=== PATIENT | male | born 1945 | race Caucasian/White ===

== ENCOUNTER 2021-08-11 14:39 | Emergency (ER) | payer MEDICARE ==
[2021-08-11 14:47] VITALS: BP 178/85; PULSE 70; RESP 18; TEMP 97.6
--- NOTE | 2021-08-11 15:38 | ED ---
General Adult HPI - General Chief complaint: ENT Stated complaint: sore throat Time Seen by Provider: 08/11/21 14:45 Source: patient, RN notes reviewed, old records reviewed Mode of arrival: ambulatory Limitations: no limitations - History of Present Illness Initial comments: This is a 76-year-old male presents emergency Department with anxiety and depr ession. Patient states that his sore throat for 3 weeks he was on penicillin it hasn't gotten any better. Patient just wants another rapid strep test and a COBRA test. Patient states he doesn't want no wait for the results because he is too anxious pain in the emergency department. Patient denies any shortness of breath or difficulty breathing or chest pain. Patient denies any recent fever chills. Patient states he has a lot of postnasal drip at night and his sore throat is much worse in the morning and when he starts drinking in the daytime he feels much better. Patient has asked to go home and asked us to call him with results. - Related Data Allergies Allergy/AdvReac Type Severity Reaction Status Date / Time No Known Allergies Allergy Verified 08/11/21 14:47 Review of Systems ROS Statement: Those systems with pertinent positive or pertinent negative responses have been documented in the HPI. ROS Other: All systems not noted in ROS Statement are negative. Past Medical History History of Any Multi-Drug Resistant Organisms: None Reported Past Surgical History: Appendectomy, Cholecystectomy, Orthopedic Surgery, Tonsillectomy Past Psychological History: Anxiety, Depression Smoking Status: Never smoker Past Alcohol Use History: Occasional Past Drug Use History: None Reported General Exam - General Exam Comments Initial Comments: GENERAL: Patient is well-developed and well-nourished. Patient is nontoxic and well- hydrated and is in no acute distress. ENT: Neck is soft and supple. No significant lymphadenopathy is noted. Oropharynx is clear. Moist mucous membranes. Neck has full range of motion without eliciting any pain. EYES: The sclera were anicteric and conjunctiva were pink and moist. Extraocular movements were intact and pupils were equal round and reactive to light. Eyelids were unremarkable. PULMONARY: Unlabored respirations. Good breath sounds bilaterally. No audible rales rhonchi or wheezing was noted. CARDIOVASCULAR: There is a regular rate and rhythm without any murmurs gallops or rubs. ABDOMEN: Soft and nontender with normal bowel sounds. SKIN: Skin is clear with no lesions or rashes and otherwise unremarkable. NEUROLOGIC: Patient is alert and oriented x3. Cranial nerves II through XII are grossly intact. Motor and sensory are also intact. Normal speech, volume and content. Symmetrical smile. MUSCULOSKELETAL: Normal extremities with adequate strength and full range of motion. No lower extremity swelling or edema. No calf tenderness. LYMPHATICS: No significant lymphadenopathy is noted PSYCHIATRIC: Normal psychiatric evaluation. Limitations: no limitations Course Vital Signs 08/11/21 14:41 Temperature 97.6 F Pulse Rate 70 Respiratory 18 Rate Blood Pressure 178/85 O2 Sat by Pulse 99 Oximetry Disposition Clinical Impression: Pharyngitis Disposition: HOME SELF-CARE Instructions (If sedation given, give patient instructions): Pharyngitis (ED) Is patient prescribed a controlled substance at d/c from ED?: No Referrals: Angel Mcadams MD [Primary Care Provider] - 1-2 days Time of Disposition: 15:37
== END 2021-08-11 15:47 | disposition home or self-care (01) ==
LOC: EC 14:39
DX: J02.9 Acute pharyngitis, unspecified (principal)
CPT/HCPCS: 87081; 87430; 87635; 99283

== ENCOUNTER 2022-06-23 10:30 | Inpatient (IN) | payer MEDICARE ==
[2022-06-23] MEDS ORDERED: SODIUM CHLORIDE 0.9% 500 ML 500 ML IV STA (10:52)
[2022-06-23 10:59] LABS: Basophils % (A) 1 %; Eosinophils # (A) 0.2 k/uL (0-0.7); Eosinophils % (A) 2 %; HGB 14.5 gm/dL (13.0-17.5); Lymphocytes % (A) 13 %; MCH 33.1 pg (25.0-35.0); MCHC 35.4 g/dL (31.0-37.0); MCV 93.6 fL (80.0-100.0); Mean Platelet Volume 7.6; Monocytes # (A) 0.6 k/uL (0-1.0); Monocytes % (A) 8 %; Neutrophils # (A) 5.8 k/uL (1.3-7.7); Neutrophils % (A) 74 %; Platelet Count 227 k/uL (150-450); RBC 4.39 m/uL (4.30-5.90); RDW 12.3 % (11.5-15.5); WBC 7.9 k/uL (3.8-10.6)
[2022-06-23 11:12] LABS: Partial Thromboplastin Time 23.4 sec (22.0-30.0); Prothrombin Time 10.4 sec (9.0-12.0)
[2022-06-23 11:19] LABS: ALT 26 U/L (4-49); AST 30 U/L (17-59); African American GFR (CKD) >90 (>60 ml/min/1.73 sqM); Albumin 4.2 g/dL (3.5-5.0); Alkaline Phosphatase 62 U/L (38-126); Anion Gap 7 mmol/L; Blood Urea Nitrogen 20 mg/dL (9-20); Carbon Dioxide 27 mmol/L (22-30); Chloride 105 mmol/L (98-107); Glucose 154 mg/dL (74-99); Non-African American GFR(CKD) 82 (>60 ml/min/1.73 sqM); Sodium 139 mmol/L (137-145); Total Bilirubin 0.6 mg/dL (0.2-1.3); Total Protein 7.1 g/dL (6.3-8.2)
--- NOTE | 2022-06-23 11:27 | XR ---
EXAMINATION TYPE: XR chest 2V DATE OF EXAM: 06/23/2022 COMPARISON: NONE TECHNIQUE: PA and lateral views submitted. HISTORY: Altered mental status FINDINGS: The lungs are clear and there is no pneumothorax, pleural effusion, or focal pneumonia. Overlying a rtifact noted. Heart size grossly normal. No overt failure. Correlate for underlying COPD. Hypertroph ic changes of the spine. Atherosclerotic change aorta. IMPRESSION: 1. No acute process. Correlate for COPD.
--- NOTE | 2022-06-23 11:35 | CT ---
EXAMINATION TYPE: CT brain wo con DATE OF EXAM: 06/23/2022 HISTORY: leaning to the Rt, dizziness. Acute onset neuro deficit. CT DLP: 1147.6 mGycm. Automated Exposure Control for Dose Reduction was Utilized. TECHNIQUE: CT scan of the head is performed without contrast. COMPARISON: None. FINDINGS: There is no acute intracranial hemorrhage or midline shift identified. There is mild to m oderate diffuse ventricular and sulcal prominence consistent with diffuse cerebral atrophy with degre e of sulcal effacement greatest over the superior bilateral frontal and parietal lobes. There is mil d to moderate low-attenuation in the deep and periventricular white matter consistent with chronic sm all vessel ischemic change inpatient of this age. Scleral calcification lateral left globe. Paranas al sinuses are grossly clear. Nasal septum slightly deviated to right of midline. There is 1.8 cm muc ous retention cyst or polyp in the anterior inferior right maxillary sinus. IMPRESSION: No acute intracranial hemorrhage or midline shift. There is mild to moderate diffuse ce rebral atrophy greatest over the superior bilateral frontal and parietal lobes and mild to moderate c hronic small vessel ischemic change noted.
--- NOTE | 2022-06-23 11:40 | CT ---
EXAMINATION TYPE: CT angio head neck DATE OF EXAM: 06/23/2022 HISTORY: leaning to the Rt, dizziness COMPARISON: CT DLP: 589.3 mGycm. Automated Exposure Control for Dose Reduction was Utilized. TECHNIQUE: CTA scan of the neck is performed with IV Contrast, patient injected with 65 mL of Isovue 370, axial images are obtained, coronal and sagittal reformatted images are reviewed. Three-D recons tructed images are created on an independent workstation and reviewed. Source images are reviewed. FINDINGS: Carotid/Vascular Structures: There is a 3 vessel arch. Common carotid arteries appear unremarkable. T he vertebral arteries are codominant. Mild vascular calcification without stenosis is present at the carotid bifurcations. Internal carotid arteries and vertebral arteries are patent to the skull base. Cervical of [place]: Vertebral basilar system appears normal. Posterior cerebral vasculature is unrema rkable. Internal carotid arteries bifurcate normally into A1 and M1 segments. A2 segments are normal. The anterior communicating artery is patent. Posterior communicating arteries are not identified. Other: Degenerative disc changes present C3-4 and C4-5. Some mild posterior endplate spurring at C3 m ay be present. IMPRESSION: 1. No flow-limiting stenosis bilateral carotid bifurcations. 2. Normal [place] of [place] NASCET criteria was used in interpretation of this exam?
[2022-06-23] MEDS ORDERED: LORazepam 2 MG/ML INJ IV STA (12:00)
--- NOTE | 2022-06-23 12:36 | ED ---
General Adult HPI - General Chief complaint: Weakness Stated complaint: weakness Time Seen by Provider: 06/23/22 10:30 Source: patient, family, EMS, RN notes reviewed, old records reviewed Mode of arrival: EMS Limitations: no limitations - History of Present Illness Initial comments: This is a 77-year-old male who presents emergency Department complaining that for 3 days he's been dragging his right foot and when he gets up is leaning to the right base states this morning it was considerably worse and he actually fell over but he did not hurt himself. Patient denies any headache patient denies any numbness. Patient denies any slurred speech. Patient states stable to move all extremities but he seems not to have his coordination he is dragging his foot even though he seems to be able to lift his foot move his foot without problem. Patient denies any chest pain or palpitations. Patient has difficulty breathing first breath per patient denies abdominal pain patient denies nausea vomiting diarrhea. - Related Data Home Medications Medication Instructions Recorded Confirmed ALPRAZolam [Xanax] 1 mg PO DAILY PRN 06/23/22 06/23/22 Propranolol [Inderal] 20 mg PO DAILY 06/23/22 06/23/22 Rosuvastatin [Crestor] 20 mg PO Q2D@2100 06/23/22 06/23/22 busPIRone HCl [Buspar] 10 mg PO BID 06/23/22 06/23/22 lisinopriL [Prinivil] 20 mg PO BID 06/23/22 06/23/22 traZODone HCL 150 mg PO HS 06/23/22 06/23/22 Allergies Allergy/AdvReac Type Severity Reaction Status Date / Time No Known Allergies Allergy Verified 06/23/22 12:02 Review of Systems ROS Statement: Those systems with pertinent positive or pertinent negative responses have been documented in the HPI. ROS Other: All systems not noted in ROS Statement are negative. Past Medical History Past Medical History: Hypertension History of Any Multi-Drug Resistant Organisms: None Reported Past Surgical History: Appendectomy, Cholecystectomy, Orthopedic Surgery, Tonsillectomy Past Psychological History: Anxiety, Depression Smoking Status: Never smoker Past Alcohol Use History: Occasional Past Drug Use History: None Reported General Exam - General Exam Comments Initial Comments: GENERAL: Patient is well-developed and well-nourished. Patient is nontoxic and well- hydrated and is in no acute distress. ENT: Neck is soft and supple. No significant lymphadenopathy is noted. Oropharynx is clear. Moist mucous membranes. Neck has full range of motion without eliciting any pain. EYES: The sclera were anicteric and conjunctiva were pink and moist. Extraocular movements were intact and pupils were equal round and reactive to light. Eyelids were unremarkable. PULMONARY: Unlabored respirations. Good breath sounds bilaterally. No audible rales rhonchi or wheezing was noted. CARDIOVASCULAR: There is a regular rate and rhythm without any murmurs gallops or rubs. ABDOMEN: Soft and nontender with normal bowel sounds. SKIN: Skin is clear with no lesions or rashes and otherwise unremarkable. NEUROLOGIC: Patient is alert and oriented x3. Cranial nerves II through XII are grossly intact. Motor and sensory are also intact. Normal speech, volume and content. Symmetrical smile. Cerebellar exam grossly intact. Patient is able to do heel to muñoz without problem bilaterally patient's finger-nose bilaterally is normal. MUSCULOSKELETAL: Normal extremities with adequate strength and full range of motion. LYMPHATICS: No significant lymphadenopathy is noted PSYCHIATRIC: Patient is extremely anxious Limitations: no limitations Course Vital Signs 06/23/22 06/23/22 10:31 11:45 Temperature 98.1 F Pulse Rate 60 62 Respiratory 18 18 Rate Blood Pressure 176/103 156/107 O2 Sat by Pulse 97 96 Oximetry Medical Decision Making - Medical Decision Making EKG shows sinus bradycardia with 59 bpm TX interval is 250 QRS is 124 QT interval is 4:15 QTC is 414. Patient's EKG shows no ST segment elevation or depression. CT of the brain was interpreted by me shows no acute normalities. CT angiogram of head and neck showed no acute normal Chest x-ray was interpreted by me. X-ray of the chest showed no acute abnormality. I spoke with Dr. Starr he agreed to admit the patient admitted the patient I consult the neurology. I could not appreciate any deficit in my exam is an age was 0. family did state that the patient was off balance and fell this morning - Lab Data Result diagrams: 06/23/22 10:54 06/23/22 10:54 Lab Results 06/23/22 06/23/22 06/23/22 Range/Units 10:54 10:54 10:54 WBC 7.9 (3.8-10.6) k/uL RBC 4.39 (4.30-5.90) m/uL Hgb 14.5 (13.0-17.5) gm/dL Hct 41.0 (39.0-53.0) % MCV 93.6 (80.0-100.0) fL MCH 33.1 (25.0-35.0) pg MCHC 35.4 (31.0-37.0) g/dL RDW 12.3 (11.5-15.5) % Plt Count 227 (150-450) k/uL MPV 7.6 Neutrophils % 74 % Lymphocytes % 13 % Monocytes % 8 % Eosinophils % 2 % Basophils % 1 % Neutrophils # 5.8 (1.3-7.7) k/uL Lymphocytes # 1.0 (1.0-4.8) k/uL Monocytes # 0.6 (0-1.0) k/uL Eosinophils # 0.2 (0-0.7) k/uL Basophils # 0.0 (0-0.2) k/uL PT 10.4 (9.0-12.0) sec INR 1.0 (<1.2) APTT 23.4 (22.0-30.0) sec Sodium 139 (137-145) mmol/L Potassium 4.0 (3.5-5.1) mmol/L Chloride 105 (98-107) mmol/L Carbon Dioxide 27 (22-30) mmol/L Anion Gap 7 mmol/L BUN 20 (9-20) mg/dL Creatinine 0.89 (0.66-1.25) mg/dL Est GFR (CKD-EPI)AfAm >90 (>60 ml/min/1.73 sqM) Est GFR (CKD-EPI)NonAf 82 (>60 ml/min/1.73 sqM) Glucose 154 H (74-99) mg/dL Calcium 9.0 (8.4-10.2) mg/dL Total Bilirubin 0.6 (0.2-1.3) mg/dL AST 30 (17-59) U/L ALT 26 (4-49) U/L Alkaline Phosphatase 62 (38-126) U/L Troponin I (0.000-0.034) ng/mL Total Protein 7.1 (6.3-8.2) g/dL Albumin 4.2 (3.5-5.0) g/dL 06/23/22 Range/Units 10:54 WBC (3.8-10.6) k/uL RBC (4.30-5.90) m/uL Hgb (13.0-17.5) gm/dL Hct (39.0-53.0) % MCV (80.0-100.0) fL MCH (25.0-35.0) pg MCHC (31.0-37.0) g/dL RDW (11.5-15.5) % Plt Count (150-450) k/uL MPV Neutrophils % % Lymphocytes % % Monocytes % % Eosinophils % % Basophils % % Neutrophils # (1.3-7.7) k/uL Lymphocytes # (1.0-4.8) k/uL Monocytes # (0-1.0) k/uL Eosinophils # (0-0.7) k/uL Basophils # (0-0.2) k/uL PT (9.0-12.0) sec INR (<1.2) APTT (22.0-30.0) sec Sodium (137-145) mmol/L Potassium (3.5-5.1) mmol/L Chloride (98-107) mmol/L Carbon Dioxide (22-30) mmol/L Anion Gap mmol/L BUN (9-20) mg/dL Creatinine (0.66-1.25) mg/dL Est GFR (CKD-EPI)AfAm (>60 ml/min/1.73 sqM) Est GFR (CKD-EPI)NonAf (>60 ml/min/1.73 sqM) Glucose (74-99) mg/dL Calcium (8.4-10.2) mg/dL Total Bilirubin (0.2-1.3) mg/dL AST (17-59) U/L ALT (4-49) U/L Alkaline Phosphatase (38-126) U/L Troponin I <0.012 (0.000-0.034) ng/mL Total Protein (6.3-8.2) g/dL Albumin (3.5-5.0) g/dL Disposition Clinical Impression: CVA (cerebral vascular accident) Disposition: ADMITTED IP TO THIS HOSP Referrals: Edwin Orta MD [Primary Care Provider] - 1-2 days Time of Disposition: 12:36
[2022-06-23] MEDS ORDERED: ASPIRIN 325 MG TAB PO STA (12:38)
--- NOTE | 2022-06-23 15:37 | P.CNNES ---
History of Present Illness Consult date: 06/23/22 Requesting physician: Toñito Dominguez Reason for Consult: cva History of Present Illness: This is a 77-year-old gentleman who presents emergency department because of episode of dragging his right foot and leaning on the right side. Some of the history is obtained from the patient's daughter was at bedside. According to the patient has been feeling dizzy and having excessive saliva for some time and this has been going on for years at least 2-3 years that has been progressively getting worse. According to the daughter today he dragged his right foot and was living on the right side but according to the patient was feeling dizzy when getting up. Upon seeing him I noticed that the patient is having right upper extremity resting tremor and upon asking about that he stated that he's been having it for 2-3 years is progressively getting worse and he was [facility] the past and was told that he did not have Parkinson's since he did not have a good amount of resting tremor or excessive Saliva (He thinks he followed-up with Dr. Campos). Patient denies any focal weakness today, any numbness, any visual disturbance. Denies efficacy getting his words out. Denies any headache. Denied any lower back pain that was significant more than normal. He denies any history of stroke or seizures. He has history of depression and anxiety. Patient is not on antiplatelets. Some of the workup during his hospital visit consisted of: CBC with differential and chemistry panel is the only thing that was remarkable is the glucose slightly elevated over 154 otherwise rest is unremarkable. CT of the head is reported as no acute intracranial hemorrhage or midline shift. There is mild to moderate diffuse cerebral atrophy greatest over the superior bilateral frontal and parietal lobes and mid to moderate chronic small vessel ischemic changes noted. I personally reviewed the CT of the head and there is no acute or subacute ischemic stroke there is no intraparenchymal hemorrhage and/or mass effect. CT angiography of the head and neck was reported as no flow limiting bilateral carotid bifurcation. Normal [place] of [place]. Review of Systems Review of system: The 12 point system was reviewed and apparent positive and negative per HPI. Past Medical History Past Medical History: Hypertension History of Any Multi-Drug Resistant Organisms: None Reported Past Surgical History: Appendectomy, Cholecystectomy, Orthopedic Surgery, Tonsillectomy Past Psychological History: Anxiety, Depression Smoking Status: Never smoker Past Alcohol Use History: Occasional Past Drug Use History: None Reported Medications and Allergies Home Medications Medication Instructions Recorded Confirmed Type ALPRAZolam [Xanax] 1 mg PO DAILY PRN 06/23/22 06/23/22 History Propranolol [Inderal] 20 mg PO DAILY 06/23/22 06/23/22 History Rosuvastatin [Crestor] 20 mg PO Q2D@2100 06/23/22 06/23/22 History busPIRone HCl [Buspar] 10 mg PO BID 06/23/22 06/23/22 History lisinopriL [Prinivil] 20 mg PO BID 06/23/22 06/23/22 History traZODone HCL 150 mg PO HS 06/23/22 06/23/22 History Allergies Allergy/AdvReac Type Severity Reaction Status Date / Time No Known Allergies Allergy Verified 06/23/22 12:02 Physical Examination - Vital Signs Vital Signs: Vital Signs Temp Pulse Resp BP Pulse Ox 06/23/22 14:00 54 L 164/84 98 06/23/22 13:09 56 L 18 164/93 98 06/23/22 13:00 54 L 97 06/23/22 12:00 56 L 18 98 06/23/22 11:45 62 18 156/107 96 06/23/22 10:31 98.1 F 60 18 176/103 97 Intake and Output 06/23/22 06/23/22 06/23/22 06:59 14:59 22:59 Other: Weight 79.832 kg GENERAL: The patient is lying in bed and is not in acute distress. CHEST: The heart rate is regular rate rhythm. No murmurs to auscultation. LUNG: Clear to auscultation bilaterally no wheezing noted throughout. Not labored breathing. ABDOMEN/GI: Bowel sounds present in all 4 quadrants. No tenderness to palpation throughout. NEUROLOGICAL: Higher mental function: The patient is awake, alert, oriented to self, place and time. Patient is following commands. No aphasia and no neglect. Cranial nerves: The pupils are round, equal and reactive to light and accommodation. Visual powers are full to confrontation throughout. Extraocular movement is intact no nystagmus is noted. Facial sensation is normal to touch throughout. The facial strength is normal throughout. Has mask-like facial expression. Hearing is normal bilaterally to hand rub. Tongue is midline and moved [id number] without any difficulty. No dysarthria is noted. Shoulder shrug is normal bilaterally. Motor: The strength is 5 over 5 throughout. Normal tone and bulk. Cerebellum: Normal finger to nose bilaterally. Sensation: Sensation is normal to touch throughout. Reflexes (right/left): 2+ throughout. Plantars are downgoing bilaterally. Results - Laboratory Findings CBC and BMP: 06/23/22 10:54 06/23/22 10:54 Abnormal Lab Findings: Abnormal Labs 06/23/22 10:54 Glucose 154 H Assessment and Plan Assessment: Episode of leaning on the right side and Possible dragging the right foot but he stated he was dizzy with this episode. Rule out stroke (I feel less likely) and I feel more his symptoms due to Parkinon's disease. New onset Parkinson's (has resting tremor of the right upper extremity, dizzy and excessive saliva) for past 2-3 years and progressively worsening Hypertension Depression Anxiety Plan: I ordered MRI of the brain, 2-D echo. In the ED the patient was given aspirin 325 one stent was started on aspirin 325 daily. I decreased the aspirin from 325 daily to 81mg daily. I started the patient on Lipitor 40 mg daily at bedtime for secondary stroke prophylaxis Lipid panel is ordered as well as a TSH is ordered and pending I started the patient on Sinemet 25-100mg 1 tab tid for diagnosis of Parkinson's disease. Ordered orthostatic vitals Every 4 hours neuro checks Placed on cardiopulmonary PT OT and OPTOMETRIST ASSISTANT are consulted Defer the rest of the medical management to primary team For DVT prophylaxis start him on subcu heparin 5000 units every 12 hours Plan discussed with the patient and his daughter was at bedside. Thank you for the consultation. Time with Patient: Greater than 30
--- NOTE | 2022-06-23 17:50 | MR ---
EXAMINATION TYPE: MR brain wo/w con DATE OF EXAM: 06/23/2022 COMPARISON: None HISTORY: Unsteady gait, dizziness. CONTRAST: Standard multiplanar, multisequence MRI departmental protocol images were obtained without contrast a nd with 8 mL intravenous Gadavist gadolinium contrast. Multiplanar multi echo imaging of the brain performed without contrast. On the T2 and FLAIR images there are numerous areas of increased signal in the periventricular white matter which are coalescent and measure up to 1 cm in thickness. There are discrete foci at the josue- white matter junction both cerebral hemispheres measuring up to 7 mm. Total numbers less than 20. The re is no mass effect or midline shift. No sign of intracranial hemorrhage. Diffusion images show no s ign of an acute infarct. The brainstem is intact. Cerebellum is intact. There is no evidence of posterior fossa mass. Contrast images show no pathologic enhancement. There is normal enhancement of the venous sinuses. Th ere is arterial flow demonstrated in the anterior middle and posterior cerebral arteries bilaterally. There is arterial flow in the vertebral basilar artery system. There is some thinning of the corpus callosum. Sella turcica is normal. No evidence of orbital mass. IMPRESSION: Cerebral atrophy. Age-related periventricular white matter signal changes. Scattered white matter per ipheral high signal foci are likely related to microvascular ischemia. Demyelinating disease is not e xcluded.
[2022-06-23] MEDS: CARBIDOPA-LEVODOPA 25-100 MG 1 EACH TAB PO SCH ×2 (18:10→20:26)
[2022-06-23] MEDS: FAMOTIDINE 20 MG TAB PO SCH (20:26)
[2022-06-23] MEDS: traZODone HCL 50 MG TAB PO SCH (20:26)
[2022-06-23] MEDS: busPIRone HCl 10 MG TAB PO SCH (20:26)
[2022-06-23] MEDS: lisinopriL 20 MG TAB PO SCH (20:26)
[2022-06-23] MEDS: HEPARIN SODIUM,PORCINE/PF 5,000 UNIT/0.5 ML SYRINGE SQ SCH (20:27)
[2022-06-23] MEDS: LORazepam 1 MG TAB PO PRN (20:28)
--- NOTE | 2022-06-23 20:33 | P.HPIM ---
History of Present Illness H&P Date: 06/23/22 Richard Aguirre, is a 77-year-old male who presented to [facility] after having an episode of feeling that he was leaning to the right while he was walking and feeling that he was dragging his right foot. He was evaluated in the emergency room, vital examination on presentation revea ls a temperature of 98.1 pulse 60 respiration 18 blood pressure 176/103 pulse ox 97% on room air, laboratory data were within normal limits computed tomography scan of the brain was done in the emergency room and revealed no acute intracranial hemorrhage or midline shift there was [id number] cerebral atrophy and mild to moderate chronic small vessel ischemic changes. CT angiogram of the neck was done and revealed no flow- limiting stenosis bilateral carotid bifurcations, and normal [place]. Patient was admitted to telemetry floor neurology consultation was requested. Patient has a known history of severe depression with anxiety disorder and panic disorder, he was diagnosed about 2 years ago with Parkinson disease, he was seen by Dr. Campos, his symptoms were attributed to some of the psychiatry medication that he was taking, and these were discontinued. Past Medical History Past Medical History: Hypertension History of Any Multi-Drug Resistant Organisms: None Reported Past Surgical History: Appendectomy, Cholecystectomy, Orthopedic Surgery, Tonsillectomy Past Anesthesia/Blood Transfusion Reactions: No Reported Reaction Past Psychological History: Anxiety, Depression Smoking Status: Never smoker Past Alcohol Use History: Occasional Past Drug Use History: None Reported - Past Family History Father History Unknown: Yes Mother History Unknown: Yes Medications and Allergies Home Medications Medication Instructions Recorded Confirmed Type ALPRAZolam [Xanax] 1 mg PO DAILY PRN 06/23/22 06/23/22 History Propranolol [Inderal] 20 mg PO DAILY 06/23/22 06/23/22 History Rosuvastatin [Crestor] 20 mg PO Q2D@2100 06/23/22 06/23/22 History busPIRone HCl [Buspar] 10 mg PO BID 06/23/22 06/23/22 History lisinopriL [Prinivil] 20 mg PO BID 06/23/22 06/23/22 History traZODone HCL 150 mg PO HS 06/23/22 06/23/22 History Allergies Allergy/AdvReac Type Severity Reaction Status Date / Time No Known Allergies Allergy Verified 06/23/22 12:02 Physical Exam Vitals: Vital Signs Temp Pulse Pulse Resp BP BP Pulse Ox 06/23/22 16:00 97.5 F L 54 L 16 159/76 98 06/23/22 14:00 54 L 164/84 98 06/23/22 13:09 56 L 18 164/93 98 06/23/22 13:00 54 L 97 06/23/22 12:00 56 L 18 98 06/23/22 11:45 62 18 156/107 96 06/23/22 10:31 98.1 F 60 18 176/103 97 Intake and Output 06/23/22 06/23/22 06/23/22 06:59 14:59 22:59 Other: Weight 79.832 kg In general patient is alert and oriented x 3 in no distress HEENT head normocephalic and atraumatic Neck is supple no JVD no goiter no lymphadenopathy no carotid bruit Chest examination is clear to auscultation no crackles no wheezing Cardiac exam reveals regular heart sounds S1 and S2 no gallops no murmurs Abdomen is soft nontender no organomegaly with normal bowel sounds Extremity exam reveals no edema no cyanosis or clubbing Neurological examination reveals patient is alert and oriented x 3 There is no focal motor or sensory deficit There is significant tremor involving mostly the right upper extremity Results CBC & Chem 7: 06/23/22 10:54 06/23/22 10:54 Labs: Abnormal Lab Results - Last 24 Hours (Table) 06/23/22 Range/Units 10:54 Glucose 154 H (74-99) mg/dL Thrombosis Risk Factor Assmnt - Choose All That Apply Any of the Below Risk Factors Present?: No Other Risk Factors: Yes Each Risk Factor Represents 3 Points: Age 75 years or older Other congenital or acquired thrombophilia - If yes, enter type in comment: No Thrombosis Risk Factor Assessment Total Risk Factor Score: 3 Thrombosis Risk Factor Assessment Level: Moderate Risk Assessment and Plan Plan: Episode of an unsteady gait with leaning to the right and feeling of dragging of the right foot, possible stroke Underlying history of Parkinson disease, patient was evaluated as outpatient by Dr. Campos about 2-3 years ago for possible new onset Parkinson disease at that time his symptoms were felt to be related to some off the depression medications and these were discontinued and his symptoms improved he was not placed on any Parkinson disease medications Underlying history of severe depression with anxiety disorder Underlying history of hypertension Underlying history of hypertension At this time patient is admitted to telemetry floor Home medications reviewed and reordered Neurology consultation requested For DVT prophylaxis subcu heparin For GI prophylaxis on Pepcid Will follow closely
[2022-06-23] MEDS ORDERED: ATORVASTATIN 40 MG TAB PO SCH ×2 (21:00)
[2022-06-23] MEDS: ALPRAZolam 1 MG TAB PO PRN (23:35)
[2022-06-24] MEDS: LORazepam 1 MG TAB PO PRN ×3 (03:57→21:26)
[2022-06-24 08:09] LABS: Basophils % (A) 1 %; Eosinophils # (A) 0.1 k/uL (0-0.7); Eosinophils % (A) 1 %; HGB 13.7 gm/dL (13.0-17.5); Lymphocytes # (A) 1.4 k/uL (1.0-4.8); Lymphocytes % (A) 17 %; MCH 32.4 pg (25.0-35.0); MCHC 34.1 g/dL (31.0-37.0); MCV 94.9 fL (80.0-100.0); Mean Platelet Volume 7.5; Monocytes # (A) 0.8 k/uL (0-1.0); Monocytes % (A) 9 %; Neutrophils # (A) 5.7 k/uL (1.3-7.7); Neutrophils % (A) 69 %; Platelet Count 223 k/uL (150-450); RBC 4.22 m/uL (4.30-5.90); RDW 12.2 % (11.5-15.5); WBC 8.2 k/uL (3.8-10.6)
[2022-06-24 08:27] LABS: ALT 14 U/L (4-49); AST 26 U/L (17-59); African American GFR (CKD) >90 (>60 ml/min/1.73 sqM); Albumin 3.8 g/dL (3.5-5.0); Alkaline Phosphatase 65 U/L (38-126); Anion Gap 4 mmol/L; Blood Urea Nitrogen 16 mg/dL (9-20); Calcium 8.7 mg/dL (8.4-10.2); Carbon Dioxide 29 mmol/L (22-30); Chloride 104 mmol/L (98-107); Glucose 104 mg/dL (74-99); Non-African American GFR(CKD) 82 (>60 ml/min/1.73 sqM); Potassium 4.1 mmol/L (3.5-5.1); Sodium 137 mmol/L (137-145); Total Bilirubin 0.7 mg/dL (0.2-1.3); Total Protein 6.6 g/dL (6.3-8.2)
[2022-06-24] MEDS ORDERED: ASPIRIN 325 MG TAB PO SCH (09:00)
--- NOTE | 2022-06-24 10:08 | CA ---
Transthoracic Echo Report Name: Richard Aguirre Age: 77 Gender: M : 1945 Exam Date: 06/24/2022 08:46 Exam Location: [facility] Ht (in): 60 Wt (lb): 170 Ordering Physician: Chicho Farris MD Attending/Referring Phys: Manager Product Marketing Madonna Flor RDCS Procedure CPT: Indications: stroke Cardiac Hx: Technical Quality: Contrast 1: Total Dose (mL): Contrast 2: Total Dose (mL): MEASUREMENTS (Male / Female) Normal Values 2D ECHO LV Diastolic Diameter PLAX 5.3 cm 4.2 - 5.9 / 3.9 - 5.3 cm LV Systolic Diameter PLAX 3.3 cm IVS Diastolic Thickness 1.3 cm 0.6 - 1.0 / 0.6 - 0.9 cm LVPW Diastolic Thickness 1.5 cm 0.6 - 1.0 / 0.6 - 0.9 cm LV Relative Wall Thickness 0.5 RV Internal Dim ED PLAX 2.3 cm M-MODE Aortic Root Diameter MM 3.6 cm LA Systolic Diameter MM 3.4 cm LA Ao Ratio MM 0.9 MV E Point Septal Separation 1.0 cm AV Cusp Separation MM 1.6 cm DOPPLER AV Peak Velocity 184.8 cm/s AV Peak Gradient 14.7 mmHg AV Mean Velocity 119.5 cm/s AV Mean Gradient 6.6 mmHg AV Velocity Time Integral 38.0 cm LVOT Peak Velocity 122.0 cm/s LVOT Peak Gradient 6.0 mmHg MV Area PHT 2.3 cm??? Mitral E Point Velocity 45.3 cm/s Mitral A Point Velocity 74.5 cm/s Mitral E to A Ratio 0.6 MV Deceleration Time 333.7 ms MV E' Velocity 5.0 cm/s Mitral E to MV E' Ratio 9.1 FINDINGS Left Ventricle Mildly increased septal wall thickness. Left ventricular cavity size normal. Mildly increased left ventricular wall thickness. Left ventricular ejection fraction is estimated at 55%. Right Ventricle Normal right ventricular size and function. Right ventricular systolic pressure within normal limits. Right Atrium Normal right atrial size. Left Atrium Normal left atrial size. Mitral Valve Mitral valve thickened. Mild mitral regurgitation. Aortic Valve Mild aortic stenosis with a peak gradient of 14.7 mmHg and a mean gradient of 7mmHg. Mild aortic regurgitation. Tricuspid Valve Structurally normal tricuspid valve. Mild tricuspid regurgitation. Pulmonic Valve Structurally normal pulmonic valve. Pericardium Normal pericardium. Aorta Normal size aortic root and proximal ascending aorta. CONCLUSIONS Normal left ventricular dimension and systolic function Aortic sclerosis with mild aortic stenosis and mild aortic insufficiency Previewed by: Dr. Demarcus Lizama MD (Electronically Signed) Final Date: 24 June 2022 10:07
[2022-06-24] MEDS: lisinopriL 20 MG TAB PO SCH ×2 (10:49→21:26)
[2022-06-24] MEDS: CARBIDOPA-LEVODOPA 25-100 MG 1 EACH TAB PO SCH ×3 (10:49→21:26)
[2022-06-24] MEDS: PROPRANOLOL 20 MG TAB PO SCH (10:49)
[2022-06-24] MEDS: FAMOTIDINE 20 MG TAB PO SCH ×2 (10:49→21:26)
[2022-06-24] MEDS: busPIRone HCl 10 MG TAB PO SCH ×2 (10:49→21:27)
[2022-06-24] MEDS: ASPIRIN 81 MG PO SCH (10:49)
[2022-06-24] MEDS: HEPARIN SODIUM,PORCINE/PF 5,000 UNIT/0.5 ML SYRINGE SQ SCH ×2 (10:49→21:27)
[2022-06-24 14:11] VITALS: BMI 25.2
[2022-06-24 14:54] LABS: Chol/HDL Ratio 3.19 Ratio; LDL Cholesterol,Calculated 95.9 mg/dL (0.0-131.0); VLDL Calculation 12.64 mg/dL (5.00-40.00)
--- NOTE | 2022-06-24 15:55 | P.PN ---
Subjective Progress Note Date: 06/24/22 The patient is seen at bedside and per nurse he has some confusion. Patient states he feels his tremor is better today compared to yesterday. Objective - Vital Signs Vital signs: Vital Signs Temp 97.4 F L 06/24/22 12:00 Pulse 64 06/24/22 12:00 Resp 16 06/24/22 12:00 BP 138/78 06/24/22 12:00 Pulse Ox 98 06/24/22 12:00 FiO2 Intake & Output 06/23/22 06/24/22 06/24/22 18:59 06:59 18:59 Intake Total 360 Balance 360 Weight 79.832 kg 79.832 kg Intake: Oral 360 Other: Voiding Method Toilet Toilet # Voids 2 - Exam GENERAL: The patient is lying in bed and is not in acute distress. NEUROLOGICAL: Higher mental function: The patient is awake, alert, oriented to self, place and time. Patient is following commands. No aphasia and no neglect. Cranial nerves: The pupils are round, equal and reactive to light and accommodation. Visual powers are full to confrontation throughout. Extraocular movement is intact no nystagmus is noted. Facial sensation is normal to touch throughout. The facial strength is normal throughout. Has mask-like facial expression. Hearing is normal bilaterally to hand rub. Tongue is midline and moved [id number] without any difficulty. No dysarthria is noted. Shoulder shrug is normal bilaterally. Motor: The strength is 5 over 5 throughout. Normal tone and bulk. Cerebellum: Normal finger to nose bilaterally. Sensation: Sensation is normal to touch throughout. Reflexes (right/left): 2+ throughout. Plantars are downgoing bilaterally. Some of the workup during his hospital visit consisted of: CBC with differential and chemistry panel is the only thing that was remarkable is the glucose slightly elevated over 154 otherwise rest is unremarkable. Lipid panel is cholesterol is 158, LDL is 95 and HDL is 49. TSH is 2.590. CT of the head is reported as no acute intracranial hemorrhage or midline shift. There is mild to moderate diffuse cerebral atrophy greatest over the superior bilateral frontal and parietal lobes and mid to moderate chronic small vessel ischemic changes noted. I personally reviewed the CT of the head and there is no acute or subacute ischemic stroke there is no intraparenchymal hemorrhage and/or mass effect. CT angiography of the head and neck was reported as no flow limiting bilateral carotid bifurcation. Normal [place]. 2-D echo is reported as normal left ventricular diamonds and systolic function. Aortic sclerosis with mild aortic stenosis and mild aortic insufficiency MRI of the brain is reported as cerebral atrophy. Age-related periventricular white matter changes. Scattered white matter peripheral high signal foci are likely related to microvascular ischemia. The mind disease is not excluded. I personally reviewed the MRI and there is no acute or subacute ischemia and there is no mass. I feel the patient has more microvascular ischemia and not demylinating disease - Labs CBC & Chem 7: 06/24/22 07:55 06/24/22 07:55 Labs: Abnormal Lab Results - Last 24 Hours (Table) 06/24/22 06/24/22 Range/Units 07:55 07:55 RBC 4.22 L (4.30-5.90) m/uL Glucose 104 H (74-99) mg/dL Assessment and Plan Assessment: Episode of leaning on the right side and ?Possible dragging the right foot but he stated he was dizzy with this episode. I feel more his symptoms due to Parkinon's disease. Not acute or subacute ischemic stroke on MRI. New onset Parkinson's (has resting tremor of the right upper extremity, dizzy and excessive saliva) for past 2-3 years and progressively worsening Possibly patient has underlying dementia due to his Parkinson's Hypertension Depression Anxiety Plan: On ASA 81mg daily (new) and Lipitor 40 mg daily at bedtime for secondary stroke prophylaxis. From a neurologic perspective the patient does not have acute or subacute ischemia therefore he does not need aspirin or statins from neurologic perspective but will defer that to the primary team. Continue Sinemet 25-100mg 1 tab tid for diagnosis of Parkinson's disease. Ordered orthostatic vitals Every 4 hours neuro checks Placed on cardiac monitoring PT OT and ADMISSIONS CLINICIAN are consulted I highly recommend a dementia workup as an outpatient. Recommend neuropsych evaluation for detailed memory testing. Defer the rest of the medical management to primary team For DVT prophylaxis start him on subcu heparin 5000 units every 12 hours Plan discussed with the patient and his nurse. Time with Patient: Less than 30
--- NOTE | 2022-06-24 16:29 | P.CONS ---
History of Present Illness - Chief Complaint Gait disturbance - History of Present Illness I had the opportunity see patient for inpatient rehab consultation today. Patient admitted to [facility] June 23 history of dragging right foot, some dizziness and excess salivation. Admitted to Dr. mya cross. Seen by neurology, Dr. Chicho Farris who felt and still feels diagnosis most likely related to Parkinson. Chest x-ray negative. Head CT with mild to moderate diffuse cerebral atrophy. Angiogram CT negative. Brain MRI with atrophy and chronic age related white matter change. His started therapy. PT reports independent supervision bed mobility and transfer and minimal assistance for gait 150 feet, balance poor. OT reports independent to completely independent all basic self- care tasks. OT in fact reports patient ambulated total 330 feet. Speech therapy reports and strength thinking in orientation within functional limits. Previous functional history elicited patient: 77-year-old right-handed white male who is lives in one floor home with . There is a few steps in. Both are retired. gently does the cooking and laundry and both driving. Patient dependent with standing shower and gait without device. PCP is now Dr. mya cross. Denies tobacco or alcohol. Review of Systems Review of systems: ENT: Denies sneezes or discharge. Eyes: Denies discharge or photophobia. Cardiac: Denies chest pain or palpitation. Pulmonary: Denies cough or shortness of breath. Gastrointestinal: Denies nausea, emesis, constipation, diarrhea. Genitourinary: Denies discharge or frequency. Musculoskeletal: Denies muscle or bone aches. Neurologic: Patient reports right leg or foot weakness. Endocrine: Denies shakes or sweats. Oncology: Denies cancers. Dermatologic: Denies rash, itching, pruritus. ALLERGY/immunology: Denies sneezes, rashes. Past Medical History Past Medical History: Hypertension History of Any Multi-Drug Resistant Organisms: None Reported Past Surgical History: Appendectomy, Cholecystectomy, Orthopedic Surgery, Tonsillectomy Past Anesthesia/Blood Transfusion Reactions: No Reported Reaction Past Psychological History: Anxiety, Depression Smoking Status: Never smoker Past Alcohol Use History: Occasional Past Drug Use History: None Reported - Past Family History Father History Unknown: Yes Mother History Unknown: Yes Medications and Allergies Home Medications Medication Instructions Recorded Confirmed Type ALPRAZolam [Xanax] 1 mg PO DAILY PRN 06/23/22 06/23/22 History Propranolol [Inderal] 20 mg PO DAILY 06/23/22 06/23/22 History Rosuvastatin [Crestor] 20 mg PO Q2D@2100 06/23/22 06/23/22 History busPIRone HCl [Buspar] 10 mg PO BID 06/23/22 06/23/22 History lisinopriL [Prinivil] 20 mg PO BID 06/23/22 06/23/22 History traZODone HCL 150 mg PO HS 06/23/22 06/23/22 History Allergies Allergy/AdvReac Type Severity Reaction Status Date / Time No Known Allergies Allergy Verified 06/23/22 12:02 Physical Exam Vitals: Vital Signs Temp Pulse Resp BP Pulse Ox 06/24/22 16:00 98.0 F 59 L 17 125/69 99 06/24/22 12:00 97.4 F L 64 16 138/78 98 06/24/22 08:00 97.7 F 63 16 146/62 93 L 06/24/22 04:10 97.9 F 61 15 145/70 97 06/23/22 23:45 98.0 F 61 15 132/65 97 06/23/22 20:00 64 16 169/87 96 Intake and Output 06/24/22 06/24/22 06/24/22 06:59 14:59 22:59 Intake Total 360 Balance 360 Intake: Oral 360 Other: Voiding Method Toilet Toilet # Voids 2 Weight 79.832 kg Skin: Atrophic, intact. General: Medium build and comfortable appearance. Head: Normocephalic, atraumatic. Eyes: Symmetric. Pupils equal round. Ears: Symmetric. Hearing within normal limits. Mouth: Clear. Neck: Supple. Carotid without bruit. Cardiac: Regular rate and rhythm. Lungs: Clear anteriorly and posteriorly. Abdomen: Soft active nontender. Extremities: Normal tone. Neurological: Mental status: Alert, cooperative, pleasant. Cranial nerves: Symmetric facial tone and trapezius. Motor: Normal strength and isolation all 4 limbs. Sensation: Intact throughout. DTRs: Symmetric and equal throughout. Mobility: Did not attempt to sit or stand on my own. Results CBC & Chem 7: 06/24/22 07:55 06/24/22 07:55 Labs: Abnormal Lab Results - Last 24 Hours (Table) 06/24/22 06/24/22 Range/Units 07:55 07:55 RBC 4.22 L (4.30-5.90) m/uL Glucose 104 H (74-99) mg/dL Assessment and Plan (1) CVA (cerebral vascular accident) Current Visit: Yes Status: Acute Code(s): I63.9 - CEREBRAL INFARCTION, UNSPECIFIED SNOMED Code(s): 145984636 (2) Parkinson disease Current Visit: Yes Status: Acute Code(s): G20 - PARKINSON'S DISEASE SNOMED Code(s): 50009618 Plan: Comments and plan: Patient diagnoses gait disturbance most likely related to Parkinson change. OT and speech report patient independent or within normal limits. PT reports minimal assist for gait secondary to balance. OT and comment on gait however is independent. Must review therapy notes from tomorrow to follow-up on the above discrepancy. Currently, patient does not have multidisciplinary need and thus not appropriate for inpatient rehab. I would currently treat standing and gait balance as per PT comment.
--- NOTE | 2022-06-24 16:35 | P.PN ---
Subjective Progress Note Date: 06/24/22 Richard Aguirre, is a 77-year-old male who presented to [facility] after having an episode of feeling that he was leaning to the right while he was walking and feeling that he was dragging his right foot. He was evaluated in the emergency room, vital examination on presentation reveals a temperature of 98.1 pulse 60 respiration 18 blood pressure 176/103 pulse ox 97% on room air, laboratory data were within normal limits computed tomography scan of the brain was done in the emergency room and revealed no acute intracranial hemorrhage or midline shift there was [id number] cerebral atrophy and mild to moderate chronic small vessel ischemic changes. CT angiogram of the neck was done and revealed no flow- limiting stenosis bilateral carotid bifurcations, and normal [place]. Patient was admitted to telemetry floor neurology consultation was requested. Patient has a known history of severe depression with anxiety disorder and panic disorder, he was diagnosed about 2 years ago with Parkinson disease, he was seen by Dr. Campos, his symptoms were attributed to some of the psychiatry medication that he was taking, and these were discontinued. On 06/24/2022 patient was seen and examined on the medical floor he is alert and oriented 3 in no apparent distress there is no fever or chills no headache or dizziness no chest pain no shortness of breath no cough no nausea or vomiting no abdominal pain no diarrhea and no urinary symptoms, results of multiple testing reviewed with patient and his including MRI of the brain and echocardiogram. Patient is still having difficulty walking, he is using a walker, consultation for Dr. Jennings was initiated for possible admission to rehab prior to going home, will follow in a.m. Objective - Vital Signs Vital signs: Vital Signs Temp 97.4 F L 06/24/22 12:00 Pulse 64 06/24/22 12:00 Resp 16 06/24/22 12:00 BP 138/78 06/24/22 12:00 Pulse Ox 98 06/24/22 12:00 FiO2 Intake & Output 06/23/22 06/24/22 06/24/22 18:59 06:59 18:59 Intake Total 360 Balance 360 Weight 79.832 kg 79.832 kg Intake: Oral 360 Other: Voiding Method Toilet Toilet # Voids 2 - Exam In general patient is alert and oriented x 3 in no distress HEENT head normocephalic and atraumatic Neck is supple no JVD no goiter no lymphadenopathy no carotid bruit Chest examination is clear to auscultation no crackles no wheezing Cardiac exam reveals regular heart sounds S1 and S2 no gallops no murmurs Abdomen is soft nontender no organomegaly with normal bowel sounds Extremity exam reveals no edema no cyanosis or clubbing Neurological examination reveals patient is alert and oriented x 3 There is no focal motor or sensory deficit There is significant tremor involving mostly the right upper extremity - Labs CBC & Chem 7: 06/24/22 07:55 06/24/22 07:55 Labs: Abnormal Lab Results - Last 24 Hours (Table) 06/24/22 06/24/22 Range/Units 07:55 07:55 RBC 4.22 L (4.30-5.90) m/uL Glucose 104 H (74-99) mg/dL Assessment and Plan Plan: Episode of an unsteady gait with leaning to the right and feeling of dragging of the right foot, possible stroke Underlying history of Parkinson disease, patient was evaluated as outpatient by Dr. Campos about 2-3 years ago for possible new onset Parkinson disease at that time his symptoms were felt to be related to some off the depression medications and these were discontinued and his symptoms improved he was not placed on any Parkinson disease medications Underlying history of severe depression with anxiety disorder Underlying history of hypertension Underlying history of hypertension At this time patient is admitted to telemetry floor Home medications reviewed and reordered Neurology consultation requested For DVT prophylaxis subcu heparin For GI prophylaxis on Pepcid Will follow closely
[2022-06-24] MEDS: traZODone HCL 50 MG TAB PO SCH (21:26)
[2022-06-25] MEDS: ALPRAZolam 1 MG TAB PO PRN (01:24)
[2022-06-25 07:04] LABS: ALT 8 U/L (4-49); AST 24 U/L (17-59); African American GFR (CKD) >90 (>60 ml/min/1.73 sqM); Albumin 3.6 g/dL (3.5-5.0); Alkaline Phosphatase 66 U/L (38-126); Anion Gap 4 mmol/L; Blood Urea Nitrogen 18 mg/dL (9-20); Calcium 8.7 mg/dL (8.4-10.2); Carbon Dioxide 29 mmol/L (22-30); Chloride 104 mmol/L (98-107); Glucose 105 mg/dL (74-99); Non-African American GFR(CKD) 82 (>60 ml/min/1.73 sqM); Sodium 137 mmol/L (137-145); Total Bilirubin 0.6 mg/dL (0.2-1.3); Total Protein 6.4 g/dL (6.3-8.2)
[2022-06-25 07:14] LABS: Basophils % (A) 0 %; Eosinophils # (A) 0.1 k/uL (0-0.7); Eosinophils % (A) 2 %; HCT 38.7 % (39.0-53.0); HGB 13.3 gm/dL (13.0-17.5); Lymphocytes # (A) 1.3 k/uL (1.0-4.8); Lymphocytes % (A) 16 %; MCH 32.3 pg (25.0-35.0); MCHC 34.3 g/dL (31.0-37.0); MCV 94.3 fL (80.0-100.0); Monocytes # (A) 0.7 k/uL (0-1.0); Monocytes % (A) 9 %; Neutrophils # (A) 5.9 k/uL (1.3-7.7); Neutrophils % (A) 71 %; Platelet Count 215 k/uL (150-450); RBC 4.11 m/uL (4.30-5.90); RDW 12.6 % (11.5-15.5); WBC 8.3 k/uL (3.8-10.6)
[2022-06-25 08:02] LABS: Anisocytosis (M) Present; Poikilocytosis (M) Present
[2022-06-25] MEDS: HEPARIN SODIUM,PORCINE/PF 5,000 UNIT/0.5 ML SYRINGE SQ SCH (09:38)
[2022-06-25] MEDS: CARBIDOPA-LEVODOPA 25-100 MG 1 EACH TAB PO SCH (09:38)
[2022-06-25] MEDS: busPIRone HCl 10 MG TAB PO SCH (09:38)
[2022-06-25] MEDS: FAMOTIDINE 20 MG TAB PO SCH (09:38)
[2022-06-25] MEDS: PROPRANOLOL 20 MG TAB PO SCH (09:38)
[2022-06-25] MEDS: ASPIRIN 81 MG PO SCH (09:38)
[2022-06-25] MEDS: lisinopriL 20 MG TAB PO SCH (09:38)
--- NOTE | 2022-06-25 10:59 | P.DS ---
Providers Date of admission: 06/23/22 12:38 Expected date of discharge: 06/25/22 Attending physician: Olesya Starr Consults: 06/23/22 12:39 Consult Physician Routine Consulting Provider: Chicho Farris Consult Reason/Comments: CVA Do you want consulting provider notified?: Yes 06/24/22 15:16 Consult Physician Routine Consulting Provider: Morris Acuña Consult Reason/Comments: possible rehab admission Do you want consulting provider notified?: Yes Primary care physician: Olesya Ro [facility] Course: Discharge diagnosis Episode of an unsteady gait with leaning to the right and feeling of dragging of the right foot, possible stroke Underlying history of Parkinson disease, patient was evaluated as outpatient by Dr. Campos about 2-3 years ago for possible new onset Parkinson disease at that time his symptoms were felt to be related to some off the depression medications and these were discontinued and his symptoms improved he was not placed on any Parkinson disease medications Underlying history of severe depression with anxiety disorder Underlying history of hypertension Underlying history of hypertension Hospital course Richard Aguirre, is a 77-year-old male who presented to [facility] after having an episode of feeling that he was leaning to the right while he was walking and feeling that he was dragging his right foot. He was evaluated in the emergency room, vital examination on presentation reveals a temperature of 98.1 pulse 60 respiration 18 blood pressure 176/103 pulse ox 97% on room air, laboratory data were within normal limits computed tomography scan of the brain was done in the emergency room and revealed no acute intracranial hemorrhage or midline shift there was mild-to- moderate cerebral atrophy and mild to moderate chronic small vessel ischemic changes. CT angiogram of the neck was done and revealed no flow-limiting stenosis bilateral carotid bifurcations, and normal walk[place]. Patient was admitted to telemetry floor neurology consultation was requested. Patient has a known history of severe depression with anxiety disorder and panic disorder, he was diagnosed about 2 years ago with Parkinson disease, he was seen by Dr. Campos, his symptoms were attributed to some of the psychiatry medication that he was taking, and these were discontinued. On 06/24/2022 patient was seen and examined on the medical floor he is alert and oriented 3 in no apparent distress there is no fever or chills no headache or dizziness no chest pain no shortness of breath no cough no nausea or vomiting no abdominal pain no diarrhea and no urinary symptoms, results of multiple testing reviewed with patient and his including MRI of the brain and echocardiogram. Patient is still having difficulty walking, he is using a walker, consultation for Dr. Jennings was initiated for possible admission to rehab prior to going home, will follow in a.m. On 06/25/2022 patient will be DC'd home with home healthcare services. Patient was evaluated by neurology services recommendations to continue Sinemet 1 tab 3 times a day for Parkinson's disease patient does not have acute or subacute ischemia. Per neurology recommending dementia workup as outpatient. Patient is currently up ambulating with PT with walker. Patient still complaining of some unsteadiness but taking eager to be home. Patient denies chest pain or shortness of breath. Patient denies nausea vomiting or diarrhea. Vital signs temp 98.3, heart rate 60, respiratory rate 18, blood pressure 105/62, pulse ox 96% on room air Patient Condition at Discharge: Stable Plan - Discharge Summary Discharge Rx Participant: Yes New Discharge Prescriptions: New Carbidopa-Levodopa 25-100 mg [Sinemet 25-100 mg] 1 each PO TID 30 Days #90 tab Aspirin 81 mg PO DAILY 30 Days #30 tab Continue Rosuvastatin [Crestor] 20 mg PO Q2D@2100 busPIRone HCl [Buspar] 10 mg PO BID Propranolol [Inderal] 20 mg PO DAILY traZODone HCL 150 mg PO HS ALPRAZolam [Xanax] 1 mg PO DAILY PRN PRN Reason: Anxiety lisinopriL [Prinivil] 20 mg PO BID Discharge Medication List ALPRAZolam [Xanax] 1 mg PO DAILY PRN 06/23/22 [History] Propranolol [Inderal] 20 mg PO DAILY 06/23/22 [History] Rosuvastatin [Crestor] 20 mg PO Q2D@2100 06/23/22 [History] busPIRone HCl [Buspar] 10 mg PO BID 06/23/22 [History] lisinopriL [Prinivil] 20 mg PO BID 06/23/22 [History] traZODone HCL 150 mg PO HS 06/23/22 [History] Aspirin 81 mg PO DAILY 30 Days #30 tab 06/25/22 [Rx] Carbidopa-Levodopa 25-100 mg [Sinemet 25-100 mg] 1 each PO TID 30 Days #90 tab 06/25/22 [Rx] Follow up Appointment(s)/Referral(s): [facility] [REFERRING] - Olesya Starr MD [Primary Care Provider] - 1 Week [facility] Visiting Nurse, [NON-STAFF] - Discharge/Stand Alone Forms: Who Do I Call?, [employer]
--- NOTE | 2022-06-25 13:48 | P.PN ---
Subjective Progress Note Date: 06/25/22 The patient is seen at bedside and is accompanied by his . feels he is doing better and moving better and walking better currently than at home since start of Sinemet. She feels he is at baseline cognitively. Objective - Vital Signs Vital signs: Vital Signs Temp 98.3 F 06/25/22 04:30 Pulse 60 06/25/22 04:30 Resp 15 06/25/22 04:30 BP 105/62 06/25/22 04:30 Pulse Ox 96 06/25/22 04:30 FiO2 Intake & Output 06/24/22 06/25/22 06/25/22 18:59 06:59 18:59 Intake Total 480 240 Balance 480 240 Weight 79.832 kg Intake: Oral 480 240 Other: Voiding Method Toilet Toilet # Voids 0 - Exam GENERAL: The patient is lying in bed and is not in acute distress. NEUROLOGICAL: Higher mental function: The patient is awake, alert, oriented to self, place and time. Patient is following commands. No aphasia and no neglect. Cranial nerves: The pupils are round, equal and reactive to light and accommodation. Visual powers are full to confrontation throughout. Extraocular movement is intact no nystagmus is noted. Facial sensation is normal to touch throughout. The facial strength is normal throughout. Has mask-like facial expression. Hearing is normal bilaterally to hand rub. Tongue is midline and moved [id number] without any difficulty. No dysarthria is noted. Shoulder shrug is normal bilaterally. Motor: The strength is 5 over 5 throughout. Normal tone and bulk. Cerebellum: Normal finger to nose bilaterally. Sensation: Sensation is normal to touch throughout. Reflexes (right/left): 2+ throughout. Plantars are downgoing bilaterally. Some of the workup during his hospital visit consisted of: CBC with differential and chemistry panel is the only thing that was remarkable is the glucose slightly elevated over 154 otherwise rest is unremarkable. Lipid panel is cholesterol is 158, LDL is 95 and HDL is 49. TSH is 2.590. Vitamin B12: [address] of the head is reported as no acute intracranial hemorrhage or midline shift. There is mild to moderate diffuse cerebral atrophy greatest over the superior bilateral frontal and parietal lobes and mid to moderate chronic small vessel ischemic changes noted. I personally reviewed the CT of the head and there is no acute or subacute ischemic stroke there is no intraparenchymal hemorrhage and/or mass effect. CT angiography of the head and neck was reported as no flow limiting bilateral carotid bifurcation. Normal [place]. 2-D echo is reported as normal left ventricular diamonds and systolic function. Aortic sclerosis with mild aortic stenosis and mild aortic insufficiency MRI of the brain is reported as cerebral atrophy. Age-related periventricular white matter changes. Scattered white matter peripheral high signal foci are likely related to microvascular ischemia. The mind disease is not excluded. I personally reviewed the MRI and there is no acute or subacute ischemia and there is no mass. I feel the patient has more microvascular ischemia and not demylinating disease - Labs CBC & Chem 7: 06/25/22 06:09 06/25/22 06:09 Labs: Abnormal Lab Results - Last 24 Hours (Table) 06/25/22 06/25/22 Range/Units 06:09 06:09 RBC 4.11 L (4.30-5.90) m/uL Hct 38.7 L (39.0-53.0) % Glucose 105 H (74-99) mg/dL Assessment and Plan Assessment: Episode of leaning on the right side and ?Possible dragging the right foot but he stated he was dizzy with this episode. I feel more his symptoms due to Parkinon's disease. Not acute or subacute ischemic stroke on MRI. New onset Parkinson's (has resting tremor of the right upper extremity, dizzy and excessive saliva) for past 2-3 years and progressively worsening Possibly patient has underlying dementia due to his Parkinson's Hypertension Depression Anxiety Plan: On ASA 81mg daily (new) and Lipitor 40 mg daily at bedtime for secondary stroke prophylaxis. From a neurologic perspective the patient does not have acute or subacute ischemia therefore he does not need aspirin or statins from neurologic perspective but will defer that to the primary team. Continue Sinemet 25-100mg 1 tab tid for diagnosis of Parkinson's disease. Every 4 hours neuro checks On cardiac monitoring PT OT and INTERNAL GRINDER are consulted I highly recommend a dementia workup as an outpatient. Recommend neuropsych evaluation for detailed memory testing. Defer the rest of the medical management to primary team For DVT prophylaxis start him on subcu heparin 5000 units every 12 hours Plan discussed with the patient and his who is at bedside. Otherwise, patient is clear for discharge from neurological perspective. Time with Patient: Less than 30
[2022-06-25 14:46] VITALS: BP 150/79; PULSE 70; RESP 18; TEMP 98.1
== END 2022-06-25 14:20 | disposition home health service (06) | DRG 57 ==
LOC: EC 10:30 → 3SCARD 12:38
PROVIDERS: ADMIT Internal Medicine; ATTEND Internal Medicine
DX: G20 Parkinson's disease (principal); F02.83 Dementia in other diseases classified elsewhere, unspecified severity, with mood disturbance; F02.84 Dementia in other diseases classified elsewhere, unspecified severity, with anxiety; I10 Essential (primary) hypertension; I08.3 Combined rheumatic disorders of mitral, aortic and tricuspid valves; R00.1 Bradycardia, unspecified; K11.7 Disturbances of salivary secretion; R26.2 Difficulty in walking, not elsewhere classified; W19.XXXA Unspecified fall, initial encounter; Z79.899 Other long term (current) drug therapy
CPT/HCPCS: 36415; 70450; 70496; 70498; 70553; 71046; 80053; 80061; 82140; 82607; 82746; 84443; 84484; 85025; 85610; 85730; 93005; 93306; 96361; 96374; 99285

== ENCOUNTER 2023-02-08 15:51 | Emergency (ER) | payer MEDICARE ==
--- NOTE | 2023-02-08 16:44 | ED ---
Headache HPI - General Chief Complaint: Headache Stated Complaint: anxiety Time Seen by Provider: 02/08/23 16:06 Source: RN notes reviewed, old records reviewed Mode of arrival: wheelchair Limitations: no limitations - History of Present Illness Initial Comments: This is a 77-year-old male to the emergency department for evaluation, patient resents a few days after fall today with significant pain on the right side right-side, patient did hit his right forehead, right aspect of his head and right eye. Patient has no vision changes. Follows mechanical slip and fall. Patient is no loss of consciousness is not on blood thinners denies any arm pain body pain bodyaches neck pain back pain hip pain. states patient had minimal bleeding did place a bandage but has increased swelling to the right forehead MD Complaint: headache, other (Head injury with fall) -: days(s) Onset Description: sudden Location: right, frontal, temporal Severity: moderate Severity scale (1-10): 7 Quality: aching, throbbing Consistency: constant Improves With: nothing Worsens With: none Context: recent head injury Treatments Prior to Arrival: none - Related Data Home Medications Medication Instructions Recorded Confirmed ALPRAZolam [Xanax] 1 mg PO DAILY PRN 06/23/22 06/23/22 Propranolol [Inderal] 20 mg PO DAILY 06/23/22 06/23/22 Rosuvastatin [Crestor] 20 mg PO Q2D@2100 06/23/22 06/23/22 busPIRone HCl [Buspar] 10 mg PO BID 06/23/22 06/23/22 lisinopriL [Prinivil] 20 mg PO BID 06/23/22 06/23/22 traZODone HCL 150 mg PO HS 06/23/22 06/23/22 Previous Rx's Medication Instructions Recorded Aspirin 81 mg PO DAILY 30 Days #30 tab 06/25/22 Carbidopa-Levodopa 25-100 mg 1 each PO TID 30 Days #90 tab 06/25/22 [Sinemet 25-100 mg] Allergies Allergy/AdvReac Type Severity Reaction Status Date / Time No Known Allergies Allergy Verified 06/23/22 12:02 Review of Systems ROS Statement: Those systems with pertinent positive or pertinent negative responses have been documented in the HPI. ROS Other: All systems not noted in ROS Statement are negative. Past Medical History Past Medical History: Hypertension Additional Past Medical History / Comment(s): parkinsons History of Any Multi-Drug Resistant Organisms: None Reported Past Surgical History: Appendectomy, Cholecystectomy, Orthopedic Surgery, Tonsillectomy Past Anesthesia/Blood Transfusion Reactions: No Reported Reaction Past Psychological History: Anxiety, Depression Smoking Status: Never smoker Past Alcohol Use History: Occasional Past Drug Use History: None Reported - Past Family History Father History Unknown: Yes Mother History Unknown: Yes General Exam Limitations: no limitations General appearance: alert, in no apparent distress Head exam: Present: normocephalic, normal inspection. Absent: atraumatic (Significant swelling to right eye right-sided face) Eye exam: Present: normal appearance, PERRL, EOMI. Absent: scleral icterus, conjunctival injection, periorbital swelling ENT exam: Present: normal exam, mucous membranes moist Neck exam: Present: normal inspection. Absent: tenderness, meningismus, lymphadenopathy Respiratory exam: Present: normal lung sounds bilaterally. Absent: respiratory distress, wheezes, rales, rhonchi, stridor Cardiovascular Exam: Present: regular rate, normal rhythm, normal heart sounds. Absent: systolic murmur, diastolic murmur, rubs, gallop, clicks GI/Abdominal exam: Present: soft, normal bowel sounds. Absent: distended, tenderness, guarding, rebound, rigid Extremities exam: Present: normal inspection, full ROM, normal capillary refill. Absent: tenderness, pedal edema, joint swelling, calf tenderness Back exam: Present: normal inspection Neurological exam: Present: alert, oriented X3, CN II-XII intact Psychiatric exam: Present: normal affect, normal mood Skin exam: Present: warm, dry, intact, normal color. Absent: rash Course Vital Signs 02/08/23 02/08/23 02/08/23 15:55 16:15 17:27 Temperature 98.4 F 97.6 F Pulse Rate 64 60 61 Respiratory 16 20 17 Rate Blood Pressure 165/78 149/81 147/80 O2 Sat by Pulse 97 98 98 Oximetry 02/08/23 02/08/23 17:47 18:45 Temperature 98.0 F Pulse Rate 57 L 56 L Respiratory 20 20 Rate Blood Pressure 148/85 141/90 O2 Sat by Pulse 98 99 Oximetry - Reevaluation(s) Reevaluation #1: 02/08/23 17:52 Medical records reviewed Reevaluation #2: 02/08/23 19:07 Patient symptoms are improved Reevaluation #3: 02/08/23 19:07 Patient informed results and questions answered Reevaluation #4: 02/08/23 17:51 Was pt. sent in by a medical professional or institution ([facility], [employer], urgent care, hospital, or long-term...) When possible be specific @ -no Did you speak to anyone other than the patient for history (EMS, parent, family, police, friend...)? What history was obtained from this source @ -no Did you review nursing and triage notes (agree or disagree)? Why? @ -agree Are old charts reviewed (outside hosp., previous admission, EMS record, old EKG, old radiological studies, urgent care reports/EKG's, long-term records)? Report findings @ -yes Differential Diagnosis (chest pain, altered mental status, abdominal pain women, abdominal pain men, vaginal bleeding, weakness, fever, dyspnea, syncope, headache, dizziness, GI bleed, back pain, seizure, CVA, palpatations, mental health, musculoskeletal)? @ -prior EKG interpreted by me (3pts min.). @ -no X-rays interpreted by me (1pt min.). @ -no CT interpreted by me (1pt min.). @ -yes U/S interpreted by me (1pt. min.). @ -no What testing was considered but not performed or refused? (CT, X-rays, U/S, labs)? Why? @ -none What meds were considered but not given or refused? Why? @ -none Did you discuss the management of the patient with other professionals (professionals i.e. , [facility], [employer] W[employer]OW DESIGNER, lab, RT, psych nurse, addiction social worker, plate straightener, teacher, inspectors and regulatory officers, case consultant)? Give summary @ -no Was smoking cessation discussed for >3mins.? @ -no Was critical care preformed (if so, how long)? @ -no Were there social determinants of health that impacted care today? How? (Homelessness, low income, unemployed, alcoholism, drug addiction, transportation, low edu. Level, literacy, decrease access to med. care, intermediate, rehab)? @ -none Was there de-escalation of care discussed even if they declined (Discuss DNR or withdrawal of care, Hospice)? DNR status @ -no What co-morbidities impacted this encounter? (DM, HTN, Smoking, COPD, CAD, C ancer, CVA, ARF, Chemo, Hep., AIDS, mental health diagnosis, sleep apnea, morbid obesity)? @ -none Was patient admitted / discharged? Hospital course, mention meds given and route, prescriptions, significant lab abnormalities, going to OR and other pertinent info. @ - 77 male to the emergency department status post fall is a mechanical trip and fall with right-sided facial injury no traumatic injury noted on computed tomography scan patient can be discharged home Discharge Undiagnosed new problem with uncertain prognosis? @ -no Drug Therapy requiring intensive monitoring for toxicity (Heparin, Nitro, Insulin, Cardizem)? @ -no Were any procedures done? @ -no Diagnosis/symptom? @ -Head injury, fall, forehead hematoma, forehead abrasion Acute, or Chronic, or Acute on Chronic? @ -Acute Uncomplicated (without systemic symptoms) or Complicated (systemic symptoms)? @ -Complicated Side effects of treatment? @ -no Exacerbation, Progression, or Severe Exacerbation? @ -exacerbation Poses a threat to life or bodily function? How? (Chest pain, [place], [place], pneumonia, PE, COPD, DKA, ARF, appy, cholecystitis, CVA, Diverticulitis, Homicidal, Suicidal, threat to staff... and all critical care pts) @ -yes if significant underlying head injury Medical Decision Making - Medical Decision Making 77 male to the emergency department status post fall is a mechanical trip and fall with right-sided facial injury no traumatic injury noted on computed tomography scan patient can be discharged home - Radiology Data Radiology results: report reviewed (CT brain C-spine and facial bones negative for genetic injury), image reviewed Disposition Clinical Impression: Forehead contusion, Fall, Abrasion head Disposition: HOME SELF-CARE Condition: Good Instructions (If sedation given, give patient instructions): Head Injury (ED) Is patient prescribed a controlled substance at d/c from ED?: No Referrals: Olesya Starr MD [Primary Care Provider] - 1-2 days Time of Disposition: 19:05
--- NOTE | 2023-02-08 17:38 | CT ---
EXAMINATION TYPE: CT facial bones wo con DATE OF EXAM: 02/08/2023 COMPARISON: None HISTORY: pain and headache after fall yesterday. bruising to rt orbit area. CT DLP: 1123.8 mGycm CONTRAST: 0 mL of Isovue 300 The paranasal sinuses are examined in the axial plane at 2 mm thick sections. Reconstructed images i n the coronal plane were obtained. Maxillary spine is intact. Greater wings of sphenoid are intact. The zygomatic arches are intact. Marcio al bones are intact. Orbital banks and orbital floors are intact. Globes are symmetrical. Soft tissue s of the orbits appear within normal limits. Mandible and maxilla are intact There is a retention cyst in the anterior medial right maxillary sinus. The ethmoid air cells are cl ear. The sphenoid sinuses are clear. The frontal sinuses are clear. The septum is evaluated. There is septal deviation. The ostiomeatal units are patent. IMPRESSIONS: 1. No acute fractures facial bones follow-up can be performed as clinically indicated
[2023-02-08 17:49] VITALS: RESP 20
[2023-02-08] MEDS ORDERED: LORazepam 2 MG/ML INJ IV STA (17:52)
--- NOTE | 2023-02-08 18:39 | CT ---
EXAMINATION TYPE: CT brain manda pepper DATE OF EXAM: 02/08/2023 COMPARISON: HISTORY: pain and headache after fall yesterday. bruising to rt orbit area. CT DLP: 1123.8 mGycm, Automated exposure control for dose reduction was used. CONTRAST: Patient injected with mL of . CT of the brain is performed utilizing 3 mm thick sections through the posterior fossa and 3 mm thick sections through the remaining calvarium. Study is performed within 24 hours of arrival to the hospital. No abnormal hyperdensity is present to suggest an acute intracranial hemorrhage. No mass lesion is evident. No acute infarcts are evident. There is mild periventricular white matter hypodensity, likely on the basis of chronic white matter ischemic changes Ventricles and sulci are prominent for the patient age. Findings appear stable over the interval. There is a retention cyst within the right maxillary sinus. Remaining paranasal sinuses are clear. IMPRESSIONS: 1. Atrophy with mild periventricular white matter ischemic changes, stable from comparison. Follow-up MRI can be performed as clinically indicated. CT cervical spine. COMPARISON: None CT of the cervical spine is performed in the axial plane at 2 mm thick sections. Reconstructed image s in the coronal, and sagittal plane are reviewed on the computer. No acute fractures are evident. Vertebral body alignment is normal. There is loss of disc height C3-4 C4-5. Uncovertebral joint hypertrophy is present at these levels wi th moderate to severe foraminal cyst greatest on the right C4-5 level. Vertebral body heights are preserved. No spinal canal stenosis is evident. IMPRESSIONS: 1. Degenerative disc changes C3-4 C4-5. 2. Uncovertebral joint hypertrophy C3-4, C4-5 with foraminal narrowing.
[2023-02-08 18:48] VITALS: BP 141/90; PULSE 56; TEMP 98
== END 2023-02-08 19:21 | disposition home or self-care (01) ==
LOC: EC 15:51
DX: S00.83XA Contusion of other part of head, initial encounter (principal); I10 Essential (primary) hypertension; F41.9 Anxiety disorder, unspecified; F32.A Depression, unspecified; Z90.49 Acquired absence of other specified parts of digestive tract; Z79.899 Other long term (current) drug therapy; W01.0XXA Fall on same level from slipping, tripping and stumbling without subsequent striking against object, initial encounter
CPT/HCPCS: 72125; 70486; 70450; 99284; 96374; J2060

== ENCOUNTER 2023-04-28 18:55 | Emergency (ER) | payer MEDICARE ==
[2023-04-28] MEDS ORDERED: MORPHINE SULFATE 4 MG/ML SYRINGE IM STA (19:40)
[2023-04-28 19:50] VITALS: RESP 18; TEMP 97.9
--- NOTE | 2023-04-28 20:23 | XR ---
EXAMINATION TYPE: XR knee complete LT DATE OF EXAM: 04/28/2023 8:13 PM CLINICAL INDICATION:Male, 77 years old with history of fall injury; [facility] COMPARISON: None. TECHNIQUE: XR knee complete LT; examined in Frontal, lateral and oblique projections. FINDINGS: No evidence of any acute osseous pathology, soft tissue swelling, or joint effusion is no siria. A fabella is present. Tricompartmental osteophyte formation involving the femoral condyles, tibial plateau and patella. Mo derate to severe joint space narrowing of the medial knee. IMPRESSION: 1. No acute osseous pathology. 2. Moderate to severe tricompartmental osteoarthritic changes.
--- NOTE | 2023-04-28 20:28 | ED ---
Fall HPI - General Chief Complaint: Fall Stated Complaint: Fall Time Seen by Provider: 04/28/23 19:21 Source: patient Mode of arrival: ambulatory - History of Present Illness Initial Comments: This patient is 77-year-old man with history of Parkinson's disease who presents to have evaluation of knee injury. 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 Patient struck the anterior aspect of the knee and now having significant pain when attempting to move his leg. Patient denies weakness or numbness distal to injury. 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 Fall Witnessed: yes, by family Place Fall Occurred: home Loss of Consciousness: none Prolonged Down Time?: no Symptoms Prior to Fall: none Location - Extremities: Left: Knee Severity: moderate Quality: sharp Context: history of frequent falls - Related Data Home Medications Medication Instructions Recorded Confirmed ALPRAZolam [Xanax] 1 mg PO DAILY PRN 06/23/22 06/23/22 Propranolol [Inderal] 20 mg PO DAILY 06/23/22 06/23/22 Rosuvastatin [Crestor] 20 mg PO Q2D@2100 06/23/22 06/23/22 busPIRone HCl [Buspar] 10 mg PO BID 06/23/22 06/23/22 lisinopriL [Prinivil] 20 mg PO BID 06/23/22 06/23/22 traZODone HCL 150 mg PO HS 06/23/22 06/23/22 Previous Rx's Medication Instructions Recorded Aspirin 81 mg PO DAILY 30 Days #30 tab 06/25/22 Carbidopa-Levodopa 25-100 mg 1 each PO TID 30 Days #90 tab 06/25/22 [Sinemet 25-100 mg] Acetaminophen-Codeine 300-30mg 1 tab PO Q4H PRN #16 tablet 04/28/23 [Tylenol w/codeine #3] Allergies Allergy/AdvReac Type Severity Reaction Status Date / Time No Known Allergies Allergy Verified 04/28/23 19:17 Review of Systems ROS Statement: Those systems with pertinent positive or pertinent negative responses have been documented in the HPI. ROS Other: All systems not noted in ROS Statement are negative. Constitutional: Denies: fever, chills, weakness Respiratory: Denies: cough, dyspnea Cardiovascular: Denies: chest pain Gastrointestinal: Denies: abdominal pain Musculoskeletal: Reports: as per HPI, arthralgia Skin: Denies: lesions Neurological: Denies: weakness, numbness, paresthesias Past Medical History Past Medical History: Hypertension Additional Past Medical History / Comment(s): parkinsons History of Any Multi-Drug Resistant Organisms: None Reported Past Surgical History: Appendectomy, Cholecystectomy, Orthopedic Surgery, Tonsillectomy Additional Past Surgical History / Comment(s): knee and hip Past Anesthesia/Blood Transfusion Reactions: No Reported Reaction Past Psychological History: Anxiety, Depression Smoking Status: Never smoker Past Alcohol Use History: Occasional Past Drug Use History: None Reported - Past Family History Father History Unknown: Yes Mother History Unknown: Yes General Exam Limitations: no limitations General appearance: alert, in no apparent distress Head exam: Present: atraumatic, normocephalic Eye exam: Present: normal appearance Neck exam: Present: normal inspection, full ROM. Absent: tenderness Respiratory exam: Present: normal lung sounds bilaterally. Absent: respiratory distress, wheezes, rales, rhonchi, stridor, chest wall tenderness Cardiovascular Exam: Present: regular rate, normal rhythm, normal heart sounds GI/Abdominal exam: Present: soft. Absent: distended, tenderness, guarding Extremities exam: Present: normal inspection, tenderness, other (Patient has tenderness on small amount of swelling anterior aspect of the knee. No obvious deformity. No laxity. There does appear to be small effusion). Absent: full ROM, pedal edema, calf tenderness Neurological exam: Present: alert. Absent: motor sensory deficit Skin exam: Present: warm, dry, intact, normal color. Absent: rash Course Vital Signs 04/28/23 04/28/23 19:12 21:35 Temperature 97.9 F 97.9 F Pulse Rate 71 67 Respiratory 18 18 Rate Blood Pressure 167/73 162/81 O2 Sat by Pulse 97 99 Oximetry Medical Decision Making - Medical Decision Making The patient had x-ray of the left knee which I interpreted as being negative for acute fracture or dislocation. Was pt. sent in by a medical professional or institution (, PA, COMMUNICATION CONSULTANT, urgent care, hospital, or group home...) When possible be specific @ -[No] Did you speak to anyone other than the patient for history (EMS, parent, family, police, friend...)? What history was obtained from this source @ -[No] Did you review nursing and triage notes (agree or disagree)? Why? @ -[I reviewed and agree with nursing and triage notes] Were old charts reviewed (outside hosp., previous admission, EMS record, old EKG, old radiological studies, urgent care reports/EKG's, group home records)? Report findings @ -[No old charts were reviewed] Differential Diagnosis (chest pain, altered mental status, abdominal pain women, abdominal pain men, vaginal bleeding, weakness, fever, dyspnea, syncope, headache, dizziness, GI bleed, back pain, seizure, CVA, palpatations, mental health, musculoskeletal)? @ -[Differential Musculoskeletal Muscular strain, contusion, ligament sprain, fracture, arthritis, septic arthritis, bursitis, cellulitis, muscle spasm, nerve compression, DVT, arterial occlusion, herpes zoster, electrolyte abnormality, tumor.... This is not meant to be in all inclusive list EKG interpreted by me (3pts min.). @ -[As above] X-rays interpreted by me (1pt min.). @ I interpreted as above CT interpreted by me (1pt min.). @ -[None done] U/S interpreted by me (1pt. min.). @ -[None done] What testing was considered but not performed or refused? (CT, X-rays, U/S, labs)? Why? @ -[None] What meds were considered but not given or refused? Why? @ -[None] Did you discuss the management of the patient with other professionals (professionals i.e. , PA, COMMUNICATION CONSULTANT, lab, RT, psych nurse, high school social studies teacher, international relations teacher, teacher, weapons officer naval activity, patient case coordinator)? Give summary @ -[No] Was smoking cessation discussed for >3mins.? @ -[No] Was critical care preformed (if so, how long)? @ -[No] Were there social determinants of health that impacted care today? How? (Homelessness, low income, unemployed, alcoholism, drug addiction, transportation, low edu. Level, literacy, decrease access to med. care, snf, rehab)? @ -[No] Was there de-escalation of care discussed even if they declined (Discuss DNR or withdrawal of care, Hospice)? DNR status @ -[No] What co-morbidities impacted this encounter? (DM, HTN, Smoking, COPD, CAD, Cancer, CVA, ARF, Chemo, Hep., AIDS, mental health diagnosis, sleep apnea, morbid obesity)? @ -[Parkinson's disease Was patient admitted / discharged? Hospital course, mention meds given and route, prescriptions, significant lab abnormalities, going to OR and other pertinent info. @ -[Discharged, with instructions for appropriate further care and follow-up as well as return parameters Undiagnosed new problem with uncertain prognosis? @ -[No] Drug Therapy requiring intensive monitoring for toxicity (Heparin, Nitro, Insulin, Cardizem)? @ -[No] Were any procedures done? @ -[No] Diagnosis/symptom? @ -[Acute left knee contusion Acute, or Chronic, or Acute on Chronic? @ -[Acute Uncomplicated (without systemic symptoms) or Complicated (systemic symptoms)? @ -[Uncomplicated Side effects of treatment? @ -[No] Exacerbation, Progression, or Severe Exacerbation? @ -[No] Poses a threat to life or bodily function? How? (Chest pain, [place], [place], pneumonia, PE, COPD, DKA, ARF, appy, cholecystitis, CVA, Diverticulitis, Homicidal, Suicidal, threat to staff... and all critical care pts) @ -[No] Disposition Clinical Impression: Fall, Contusion of left knee, Knee effusion, left Disposition: HOME SELF-CARE Condition: Good Instructions (If sedation given, give patient instructions): Knee Pain (ED) Prescriptions: Acetaminophen-Codeine 300-30mg [Tylenol w/codeine #3] 1 tab PO Q4H PRN #16 tablet PRN Reason: Pain Is patient prescribed a controlled substance at d/c from ED?: No Referrals: Olesya Starr MD [Primary Care Provider] - 1-2 days
[2023-04-28] MEDS ORDERED: HYDROmorphone 0.5 MG/0.5 ML SYRINGE IM STA (20:35)
[2023-04-28] MEDS ORDERED: ACET/COD 300 MG/30 MG STARTER PACK 6 TAB BTL PO STA (21:13)
[2023-04-28 21:52] VITALS: BP 162/81; PULSE 67
== END 2023-04-28 21:38 | disposition home or self-care (01) ==
LOC: EC 18:55
DX: S80.02XA Contusion of left knee, initial encounter (principal); M17.12 Unilateral primary osteoarthritis, left knee; I10 Essential (primary) hypertension; F41.9 Anxiety disorder, unspecified; F32.A Depression, unspecified; Z79.899 Other long term (current) drug therapy; Z90.49 Acquired absence of other specified parts of digestive tract; W01.0XXA Fall on same level from slipping, tripping and stumbling without subsequent striking against object, initial encounter
CPT/HCPCS: 73562; 99284; 96372; J2270

== ENCOUNTER 2023-06-10 18:18 | Emergency (ER) | payer MEDICARE ==
[2023-06-10] MEDS ORDERED: ALPRAZolam 1 MG TAB PO STA (19:17)
[2023-06-10] MEDS ORDERED: lisinopriL 20 MG TAB PO STA (19:57)
[2023-06-10] MEDS ORDERED: LIDOCAINE 1% INJ 10MG/ML (20 ML MDV) SQ ONE (19:58)
--- NOTE | 2023-06-10 21:08 | ED ---
Fall HPI <MagenErica - Last Filed: 06/10/23 22:44> - General Source: EMS Mode of arrival: EMS <Brooke Juarez - Last Filed: 06/11/23 01:07> - General Chief Complaint: Fall Stated Complaint: Fall, Hypertension Time Seen by Provider: 06/10/23 18:55 - History of Present Illness Initial Comments: 78-year-old male presents to the emergency department after he sustained a fall. States that he was going up the steps into his house when he lost his footing and fell backwards from the first step. States that he landed on his back and then fell further back onto his head. He denies loss of consciousness. He does not take any blood thinners. He was able to get up off the ground and ambulate into the house. He had a laceration noted to the back of his head as well as his left elbow and this is what prompted the patient to be seen in the emergency department. No reported confusion. No neck or back pain. No pain in his extremities. Denies any chest pain or shortness of breath. No other alleviating, precipitating or modifying factors (Brooke Juarez) - Related Data Home Medications Medication Instructions Recorded Confirmed ALPRAZolam [Xanax] 1 mg PO DAILY PRN 06/23/22 06/23/22 Propranolol [Inderal] 20 mg PO DAILY 06/23/22 06/23/22 Rosuvastatin [Crestor] 20 mg PO Q2D@2100 06/23/22 06/23/22 busPIRone HCl [Buspar] 10 mg PO BID 06/23/22 06/23/22 lisinopriL [Prinivil] 20 mg PO BID 06/23/22 06/23/22 traZODone HCL 150 mg PO HS 06/23/22 06/23/22 Previous Rx's Medication Instructions Recorded Aspirin 81 mg PO DAILY 30 Days #30 tab 06/25/22 Carbidopa-Levodopa 25-100 mg 1 each PO TID 30 Days #90 tab 06/25/22 [Sinemet 25-100 mg] Acetaminophen-Codeine 300-30mg 1 tab PO Q4H PRN #16 tablet 04/28/23 [Tylenol w/codeine #3] Allergies Allergy/AdvReac Type Severity Reaction Status Date / Time No Known Allergies Allergy Verified 06/10/23 18:52 Review of Systems ROS Other: All systems not noted in ROS Statement are negative. <Erica Us - Last Filed: 06/10/23 22:44> ROS Other: All systems not noted in ROS Statement are negative. <Brooke Juarez - Last Filed: 06/11/23 01:07> ROS Statement: Those systems with pertinent positive or pertinent negative responses have been documented in the HPI. Past Medical History Past Medical History: Hypertension Additional Past Medical History / Comment(s): parkinsons History of Any Multi-Drug Resistant Organisms: None Reported Past Surgical History: Appendectomy, Cholecystectomy, Orthopedic Surgery, Tonsillectomy Additional Past Surgical History / Comment(s): knee and hip Past Anesthesia/Blood Transfusion Reactions: No Reported Reaction Past Psychological History: Anxiety, Depression Smoking Status: Never smoker Past Alcohol Use History: Occasional Past Drug Use History: None Reported - Past Family History Father History Unknown: Yes Mother History Unknown: Yes <Brooke Juarez - Last Filed: 06/11/23 01:07> General Exam Limitations: no limitations General appearance: alert, in no apparent distress Head exam: Present: other (Posterior scalp hematoma with laceration measuring 1 cm) Eye exam: Present: normal appearance, PERRL, EOMI. Absent: scleral icterus, conjunctival injection, periorbital swelling ENT exam: Present: normal exam, mucous membranes moist Neck exam: Present: normal inspection. Absent: tenderness, meningismus, lym phadenopathy Respiratory exam: Present: normal lung sounds bilaterally. Absent: respiratory distress, wheezes, rales, rhonchi, stridor Cardiovascular Exam: Present: regular rate, normal rhythm, normal heart sounds. Absent: systolic murmur, diastolic murmur, rubs, gallop, clicks GI/Abdominal exam: Present: soft, normal bowel sounds. Absent: distended, tenderness, guarding, rebound, rigid Extremities exam: Present: other (Laceration to the posterior left elbow measuring 3 cm) Neurological exam: Present: alert, oriented X3 Skin exam: Present: warm, dry, normal color. Absent: rash <Brooke Juarez - Last Filed: 06/11/23 01:07> Course Vital Signs 06/10/23 06/10/23 18:48 22:43 Temperature 97.9 F 98 F Pulse Rate 61 64 Respiratory 18 16 Rate Blood Pressure 208/95 167/87 O2 Sat by Pulse 98 98 Oximetry Procedures - Laceration Laceration #1 Consent Obtained: verbal consent Indication: laceration Site: scalp (occipital ) Size (cm): 1 Description: linear, stellate Depth: simple, single layer Size of Sutures: other Number of Sutures: 2 Complications: pain, bleeding, nerve injury Patient Tolerated Procedure: well, no complications Laceration #2 Indication: laceration Site: upper extremity (left elbow ) Description: linear Depth: simple, single layer Anesthetic Used: lidocaine 1% Anesthesia Technique: local infiltration Amount (mls): 10 Pre-repair: wound explored, irrigated extensively Size of Sutures: 5-0 Number of Sutures: 8 Technique: simple, interrupted Complications: pain, bleeding, nerve injury Patient Tolerated Procedure: well, no complications <Erica Us - Last Filed: 06/10/23 22:44> - Laceration Laceration #2 Additional Comments: Pt tolerated well (Erica Us) Medical Decision Making <Brooke Juarez - Last Filed: 06/11/23 01:07> - Medical Decision Making Was pt. sent in by a medical professional or institution (NAKIA Ayers, SENIOR JAVA SOFTWARE DEVELOPER, urgent care, hospital, or alf...) When possible be specific @ -No Did you speak to anyone other than the patient for history (EMS, parent, family, police, friend...)? What history was obtained from this source @ -Spoke with the patient's Did you review nursing and triage notes (agree or disagree)? Why? @ -I reviewed and agree with nursing and triage notes Were old charts reviewed (outside hosp., previous admission, EMS record, old EKG, old radiological studies, urgent care reports/EKG's, alf records)? Report findings @ -No old charts were reviewed Differential Diagnosis (chest pain, altered mental status, abdominal pain women, abdominal pain men, vaginal bleeding, weakness, fever, dyspnea, syncope, headache, dizziness, GI bleed, back pain, seizure, CVA, palpatations, mental health, musculoskeletal)? @ -Laceration, abrasion, hematoma, intracranial injury, skull fracture EKG interpreted by me (3pts min.). @ -None done X-rays interpreted by me (1pt min.). @ -yes and demonstrates no fractures CT interpreted by me (1pt min.). @ -Yes and demonstrates no acute intracranial process U/S interpreted by me (1pt. min.). @ -None done What testing was considered but not performed or refused? (CT, X-rays, U/S, labs)? Why? @ -None What meds were considered but not given or refused? Why? @ -None Did you discuss the management of the patient with other professionals (professionals i.e. , PA, SENIOR JAVA SOFTWARE DEVELOPER, lab, RT, psych nurse, home health care social worker, manager cosmetics, teacher, medical information officer, rifle case repairer)? Give summary @ -No Was smoking cessation discussed for >3mins.? @ -No Was critical care preformed (if so, how long)? @ -No Were there social determinants of health that impacted care today? How? (Homelessness, low income, unemployed, alcoholism, drug addiction, transportation, low edu. Level, literacy, decrease access to med. care, group home, rehab)? @ -No Was there de-escalation of care discussed even if they declined (Discuss DNR or withdrawal of care, Hospice)? DNR status @ -No What co-morbidities impacted this encounter? (DM, HTN, Smoking, COPD, CAD, Cancer, CVA, ARF, Chemo, Hep., AIDS, mental health diagnosis, sleep apnea, morbid obesity)? @ -None Was patient admitted / discharged? Hospital course, mention meds given and route, prescriptions, significant lab abnormalities, going to OR and other pertinent info. @ -Discharged. Upon arrival patient was placed in room 30. Thorough history and physical exam was performed. X-ray performed of the patient's left elbow. CT performed with the patient's brain and cervical spine. Lacerations were repaired. Results were discussed with the patient. He is stable for discharge home at this time. Instructed to have his sutures removed in 5-7 days. Stitches must be removed in 7-10 days. Return for any new or worsening symptoms per patient discharged in stable condition Undiagnosed new problem with uncertain prognosis? @ -No Drug Therapy requiring intensive monitoring for toxicity (Heparin, Nitro, Insulin, Cardizem)? @ -No Were any procedures done? @ -No Diagnosis/symptom? @ -Acute fall, blunt head trauma, acute scalp laceration with hematoma, left elbow laceration Acute, or Chronic, or Acute on Chronic? @ -acute Uncomplicated (without systemic symptoms) or Complicated (systemic symptoms)? @ -complicated Side effects of treatment? @ -No Exacerbation, Progression, or Severe Exacerbation? @ -No Poses a threat to life or bodily function? How? (Chest pain, [place], [place], pneumonia, PE, COPD, DKA, ARF, appy, cholecystitis, CVA, Diverticulitis, Homicidal, Suicidal, threat to staff... and all critical care pts) @ -No (Brooke Juarez) Disposition <Erica Us - Last Filed: 06/10/23 22:44> Is patient prescribed a controlled substance at d/c from ED?: No Time of Disposition: 21:29 <Brooke Juarez - Last Filed: 06/11/23 01:07> Clinical Impression: Fall, Blunt head injury, Scalp hematoma, Scalp laceration, Elbow laceration Disposition: HOME SELF-CARE Condition: Stable Instructions (If sedation given, give patient instructions): Care For Your Stitches (ED), Laceration (ED) Additional Instructions: Your stitches must be removed in 7-10 days. Your scalp nubia must be removed in 5-7 days Referrals: Olesya Starr MD [Primary Care Provider] - 1-2 days
--- NOTE | 2023-06-10 21:15 | CT ---
EXAMINATION TYPE: CT brain cspine wo con CT DLP: 1375.3 mGycm, Automated exposure control for dose reduction was used. DATE OF EXAM: 06/10/2023 8:20 PM COMPARISON: CT 02/08/2023 CLINICAL INDICATION:Male, 77 years old with history of fall, head injury; PAIN AFTER FALL BACKWARDS. LACERATION TO BACK OF HEAD TECHNIQUE: Brain: Multiple axial CT images of the brain were obtained without IV contrast. Cspine: Axial CT images from the skull base to the inferior aspect of T2 we obtained without intraven ous contrast. Coronal and sagittal reformatted images were also reviewed. FINDINGS: Brain: Extra-axial spaces: No abnormal extra-axial fluid collections. Ventricular system: Appear dilated in proportion to the degree of cerebral atrophy. Cerebral parenchyma: No increased attenuation to suggest acute intraparenchymal hemorrhage. The gra y-white matter interface appears maintained. Mild/moderate generalized brain atrophy. Scattered hyp oattenuating areas are seen within the cerebral white matter, nonspecific but most often seen with ch ronic microvascular ischemic changes; mild to moderate in degree. Cerebellum: No acute abnormality. Mass effect: No evidence of mass effect or midline shift. Intracranial vasculature: Atherosclerotic calcifications of the larger arteries near the skull base. Soft tissues: Small soft tissue hematoma over the left posterior skull just left of midline. Visualized orbits: Orbital contents appear grossly intact. Radiodensities along the anterior left g lobe likely sequela of previous ophthalmologic surgery. Calvarium/osseous structures: No evidence of calvarial fracture. Paranasal sinuses and mastoid air cells: Mild mucosal thickening and trace layering fluid right maxil chalo sinus. Otherwise clear. MRI is more sensitive for detecting acute processes such as infarct, and may be considered if clinica lly warranted. Cervical spine: Fracture: None seen. Osseous structures, spinal canal/neural foramina: Multilevel degenerative disc disease changes with e ndplate spurring, disc osteophyte complexes, facet arthropathy; this appears greatest C3-C4 and C4-C5 where there is mild to moderate spinal canal and neural foraminal stenoses. Vertebral alignment: No traumatic malalignment. Trace retrolisthesis C3 on C4, appears degenerative. Neck soft tissues: No acute finding.. Calcifications noted involving the cervical carotid arteries. Other: Lung apices show no acute infiltrate or pneumothorax. Patulous appearance of the visualized u pper thoracic esophagus, similar to prior. IMPRESSION: CT head: 1. No acute intracranial CT abnormality. 2. Small left posterior scalp hematoma. No evidence of calvarial fracture. 3. Atrophy and chronic microvascular ischemic changes. CT cervical spine: 1. No evidence of cervical spine fracture or traumatic malalignment. 2. Multilevel cervical spondylosis, greatest at C3-C4 and C4-C5 as described.
--- NOTE | 2023-06-10 21:21 | XR ---
EXAMINATION TYPE: XR elbow complete LT DATE OF EXAM: 06/10/2023 8:21 PM CLINICAL INDICATION:Male, 77 years old with history of fall, lac; [facility] COMPARISON: None TECHNIQUE: The left elbow was examined in AP, lateral, and oblique projections. FINDINGS: No acute fracture or dislocation. Mild degenerative changes. Soft tissue swelling and josé ging over the posterior aspect of the elbow. No sizable joint effusion is seen. No radiopaque foreign body. IMPRESSION: No evidence of acute fracture or dislocation.
[2023-06-10 22:47] VITALS: BP 167/87; PULSE 64; RESP 16; TEMP 98
== END 2023-06-10 22:44 | disposition home or self-care (01) ==
LOC: EC 18:18
DX: S00.03XA Contusion of scalp, initial encounter (principal); S51.012A Laceration without foreign body of left elbow, initial encounter; M47.812 Spondylosis without myelopathy or radiculopathy, cervical region; I67.82 Cerebral ischemia; I10 Essential (primary) hypertension; F41.9 Anxiety disorder, unspecified; F32.A Depression, unspecified; Z79.899 Other long term (current) drug therapy; W18.30XA Fall on same level, unspecified, initial encounter
CPT/HCPCS: 73080; 72125; 70450; 99285; 12002; J2001

== ENCOUNTER → 2023-12-14 | Outpatient (CLI) | payer MEDICARE ==
--- NOTE | 2023-12-14 16:49 | US ---
EXAMINATION TYPE: US venous doppler duplex LE DATE OF EXAM: 12/14/2023 4:40 PM COMPARISON: NONE CLINICAL INDICATION: Male, 78 years old with history of R22.42 LOCALIZED SWELLING, MASS AND LUMP, LEF T LOW; Bilateral leg swelling SIDE PERFORMED: Bilateral TECHNIQUE: The lower extremity deep venous system is examined utilizing real time linear array sonog walker with graded compression, doppler sonography and color-flow sonography. VESSELS IMAGED: Common Femoral Vein Deep Femoral Vein Greater Saphenous Vein * Femoral Vein Popliteal Vein Small Saphenous Vein * Proximal Calf Veins (* superficial vessels) The deep venous systems of both lower extremities from the common femoral remains to the proximal giselle f veins are patent and compressible with augmentable flow and with normal waveforms. IMPRESSION: No evidence of bilateral lower extremity DVT from the common femoral veins to the proximal calf veins
== END | disposition home or self-care (01) ==
LOC: RADUSWWP 16:13
PROVIDERS: ATTEND Internal Medicine
DX: R22.43 Localized swelling, mass and lump, lower limb, bilateral (principal)
CPT/HCPCS: 93970

== ENCOUNTER 2024-03-10 06:00 | Day surgery (SDC) | payer MEDICARE ==
[2024-03-10] MEDS ORDERED: NITROGLYCERIN SL TABS 0.4 MG TAB SUBLINGUAL PRN (06:09)
[2024-03-10] MEDS: ALPRAZolam 0.25 MG TAB PO PRN (06:27)
[2024-03-10] MEDS: SODIUM CHLORIDE 0.9% 1,000 ML in EMPTY BAG 1 BAG IV SCH (06:28)
[2024-03-10] MEDS: IV FLUID CONTINUATION 1,000 ML IV ONE (06:34)
[2024-03-10] MEDS: ALPRAZolam 0.5 MG TAB PO PRN (06:53)
[2024-03-10] MEDS: lisinopriL 20 MG TAB PO STA (06:54)
[2024-03-10] MEDS: busPIRone HCl 10 MG TAB PO STA (06:54)
[2024-03-10] MEDS: ASPIRIN 325 MG TAB PO STA (06:55)
[2024-03-10] MEDS: CARBIDOPA-LEVODOPA ER 50-200MG 1 EACH TABLET.ER PO STA (06:55)
[2024-03-10] MEDS: PROPRANOLOL 20 MG TAB PO STA (06:55)
[2024-03-10] MEDS ORDERED: LIDOCAINE 1% INJ 10MG/ML (20 ML MDV) ONE (07:20)
[2024-03-10] MEDS ORDERED: VERAPAMIL 2.5 MG/ML 2 ML AMP ONE (07:20)
[2024-03-10] MEDS ORDERED: fentaNYL (PF) 50 MCG/ML 2 ML AMP ONE (07:26)
[2024-03-10] MEDS ORDERED: HEPARIN SODIUM 1,000 UN/ML (10ML VL) ONE (07:26)
[2024-03-10 07:29] VITALS: RESP 16; TEMP 97.9
[2024-03-10] MEDS: fentaNYL (PF) 50 MCG/ML 2 ML AMP IVP ONE (07:36)
[2024-03-10] MEDS: LIDOCAINE 1% INJ 10MG/ML (20 ML MDV) SQ ONE (07:36)
[2024-03-10] MEDS: MIDAZOLAM 2 MG/2 ML VIAL IVP ONE (07:37)
[2024-03-10] MEDS: VERAPAMIL SYRINGE (5 MG/10 ML) INTRAARTER ONE (07:37)
[2024-03-10] MEDS: HEPARIN SODIUM,PORCINE (1 ML) 2,500 UNIT in SODIUM CHLORIDE 0.9% 250 ML IRRIGATION PRN (07:48)
[2024-03-10] MEDS: HEPARIN SODIUM,PORCINE 10,000 UNIT in SODIUM CHLORIDE 0.9% 1,000 ML IRRIGATION PRN (07:48)
[2024-03-10] MEDS: HEPARIN SODIUM 1,000 UN/ML (10ML VL) IVP ONE (07:51)
[2024-03-10] MEDS: IOPAMIDOL-370 100ML BTL INJ ONE ×2 (08:01)
[2024-03-10] MEDS ORDERED: RX INFO: IV CONTRAST WAS GIVEN 1 EACH MISC MISCELLANE PRN (08:23)
[2024-03-10] MEDS ORDERED: ALPRAZolam 1 MG TAB PO PRN (08:24)
[2024-03-10] MEDS ORDERED: SODIUM CHLORIDE 0.9% 1,000 ML IV SCH (08:30)
--- NOTE | 2024-03-10 08:31 | P.CARDCATH ---
Date of Procedure: 03/10/24 Description of Procedure: Cardiac Catheterization: The patient is a 78-year-old male with known history of hypertension, hyperlipidemia who has been complaining of dyspnea and had an abnormal MPI that showed inferolateral wall reversible defect with evidence of cardiomyopathy recommendations were made regarding cardiac catheterization, the risks and the complications were discussed with the patient who is in full understanding and agreement. Procedure Description: Patient was brought to laborer high density press in fasting semi-sedated state after receiving Fentanyl and Benadryl achieiving moderate conscious sedated state. Using Xylocaine Anesthesia and modified Seldinger technique, a 6-[place] sheath was introduced in the right radial artery . There was inability to advance the wire because of tortuosity. Using Xylocaine anesthesia and the modified Seldinger technique and using a micropuncture needle a 6 [place] sheath was introduced in the right femoral artery. Subsequently, selective coronary angiography was performed using a 6-[place] 4 bend right Jc and 4.5 left Jc catheter. Multiple views of the coronary artery including hemiaxial views were obtained. The left Jc catheter was used to cross the aortic valve and LVEDP was calculated. Following that, catheter and sheath were removed. Hemostasis was obtained with deployment of vascular band . There was no immediate complication. Patient was returned to room in stable condition. Of note, the patient received a total of 4500 units of intravenous heparin as well as intra-arterial verapamil. An Angio-Seal was deployed in the right femoral artery to obtain hemostasis. Findings: Left main: This is a large size vessel, bifurcating into LAD and left circumflex, left main has no obstructive disease LAD: This is a large size vessel, reaching to the apex with a wraparound apex segment giving rise to a large diagonal branch in the midsegment. The LAD at the site of the diagonal branch takeoff has a 20% plaque, the rest of the vessel has no high-grade stenosis Left circumflex: This is a nondominant vessel giving rise to 2 obtuse marginal branch following that the vessel is chronically occluded with no significant antegrade flow. There is collaterals from the right coronary artery toward the distal left circumflex RCA: This is a large dominant vessel, bifurcating into PDA and PLV the right coronary artery and its branches have no obstructive disease. There is collaterals from the right PDA toward the distal left circumflex that appears to be small in caliber. Left Ventriculogram: Not performed Hemodynamics: There was no gradient across aortic valve, LVEDP was 6-8 mmHg Conclusion: 1. Chronically occluded distal left circumflex 2. Mild disease in the mid LAD 3. Right dominance 4. Low LVEDP Recommendations: In view of the findings and the anatomy I have recommended to continue medical therapy with the aggressive coronary risks modification initiated. The findings and the recommendations were discussed with the patient and the family and they were in full understanding and agreement. Duration of sedation is 35 minutes.
[2024-03-10] MEDS ORDERED: PANTOPRAZOLE 40 MG TABLET PO SCH (12:00)
[2024-03-10] MEDS ORDERED: ESCITALOPRAM 10 MG TAB PO SCH (12:00)
[2024-03-10 12:58] VITALS: BP 178/82; PULSE 47
[2024-03-10] MEDS ORDERED: CARBIDOPA-LEVODOPA ER 50-200MG 1 EACH TABLET.ER PO SCH (16:00)
[2024-03-10] MEDS ORDERED: ATORVASTATIN 40 MG TAB PO SCH (21:00)
[2024-03-10] MEDS ORDERED: busPIRone HCl 10 MG TAB PO SCH (21:00)
[2024-03-10] MEDS ORDERED: NON FORMULARY DRUG (Trazodone Hcl [Trazodone Hcl] 150 MG Tablet) PO SCH (21:00)
[2024-03-10] MEDS ORDERED: lisinopriL 20 MG TAB PO SCH (21:00)
[2024-03-11] MEDS ORDERED: ASPIRIN 81 MG PO SCH (09:00)
[2024-03-11] MEDS ORDERED: PROPRANOLOL 20 MG TAB PO SCH (09:00)
== END 2024-03-10 13:16 | disposition home or self-care (01) ==
LOC: CATHCVL 06:00
PROVIDERS: ATTEND Internal Medicine Interventional Cardiology
DX: I25.10 Atherosclerotic heart disease of native coronary artery without angina pectoris (principal); I25.82 Chronic total occlusion of coronary artery; I42.8 Other cardiomyopathies; I10 Essential (primary) hypertension; E78.2 Mixed hyperlipidemia; I08.3 Combined rheumatic disorders of mitral, aortic and tricuspid valves; G20.A1 Parkinson's disease without dyskinesia, without mention of fluctuations; F41.9 Anxiety disorder, unspecified; R60.0 Localized edema; Z79.82 Long term (current) use of aspirin; Z79.899 Other long term (current) drug therapy; Z87.891 Personal history of nicotine dependence; Z82.49 Family history of ischemic heart disease and other diseases of the circulatory system
CPT/HCPCS: 93458

== ENCOUNTER 2024-03-23 13:58 | Emergency (ER) | payer MEDICARE ==
[2024-03-23 14:13] VITALS: PULSE 64; RESP 16; TEMP 97.5
--- NOTE | 2024-03-23 15:33 | XR ---
EXAMINATION TYPE: XR lumbar spine 2 or 3V DATE OF EXAM: 03/23/2024 3:05 PM CLINICAL INDICATION: Male, 78 years old with history of Fall; [facility] COMPARISON: None TECHNIQUE: XR lumbar spine 2 or 3V - Frontal, lateral and coned in L5-S1 lateral views of the spine. FINDINGS: No evidence of any acute osseous pathology. No evidence of loss of vertebral body height i s seen. There is grade 2 anterolisthesis of L5 on S1 alignment of the lumbar vertebral bodies. Scatte red disc space narrowing. Multilevel marginal osteophyte formation throughout the visualized spine. T here is facet joint arthropathy throughout the spine. Scattered at least mild neural foraminal stenos is. Atherosclerosis of the arterial vasculature. Suspected bilateral spondylolysis at L5. IMPRESSION: 1. No acute fracture. 2. Mild multilevel disc degeneration. 3. Grade 2 anterolisthesis of L5 on S1 grade 2 anterolisthesis of L5 on S1 with bilateral spondylolys is at L5. [facility], , 03/23/2024 3:31 PM
--- NOTE | 2024-03-23 15:50 | ED ---
Fall HPI - General Chief Complaint: Fall Stated Complaint: fall Time Seen by Provider: 03/23/24 14:10 Source: patient, EMS, RN notes reviewed Mode of arrival: EMS - History of Present Illness Initial Comments: This is a 78-year-old male who presents to the emergency department for fall. Patient has a history of Parkinson's disease and states that his right leg gave out on him earlier today causing him to fall onto his bottom. Denies hitting his head. Denies any loss of consciousness. He most recently fell a few months ago. States that he is scared about being in the hospital but otherwise denies any complaints or pain at this time. He does use both a walker and a cane. States that he tried using the walker today, which is when he fell. Believes that he may need to transition to a wheelchair. MD Complaint: fall - Related Data Home Medications Medication Instructions Recorded Confirmed ALPRAZolam [Xanax] 1 mg PO BID PRN 06/23/22 03/23/24 Propranolol [Inderal] 20 mg PO DAILY 06/23/22 03/23/24 Rosuvastatin [Crestor] 20 mg PO HS 06/23/22 03/23/24 busPIRone HCl [Buspar] 10 mg PO BID 06/23/22 03/23/24 lisinopriL [Prinivil] 20 mg PO BID 06/23/22 03/23/24 traZODone HCL 150 mg PO HS 06/23/22 03/23/24 Carbidopa-Levodopa ER 50-200Mg 1 tab PO TID 03/08/24 03/23/24 [Sinemet CR 50-200 mg] Escitalopram Oxalate [Lexapro] 10 mg PO DAILY@1200 03/08/24 03/23/24 Furosemide [Lasix] 20 mg PO DAILY 03/08/24 03/23/24 Pantoprazole [Protonix] 40 mg PO DAILY@1200 03/08/24 03/23/24 Potassium Chloride ER [K-Dur 10] 10 meq PO DAILY 03/08/24 03/23/24 Previous Rx's Medication Instructions Recorded Aspirin 81 mg PO DAILY 30 Days #30 tab 06/25/22 Allergies Allergy/AdvReac Type Severity Reaction Status Date / Time No Known Allergies Allergy Verified 03/23/24 16:10 Review of Systems ROS Statement: Those systems with pertinent positive or pertinent negative responses have been documented in the HPI. ROS Other: All systems not noted in ROS Statement are negative. Past Medical History Past Medical History: Cancer, GERD/Reflux, Hyperlipidemia, Hypertension, Neurologic Disorder Additional Past Medical History / Comment(s): parkinsons, skin cancer on nose History of Any Multi-Drug Resistant Organisms: None Reported Past Surgical History: Appendectomy, Cholecystectomy, Joint Replacement, Orthopedic Surgery, Tonsillectomy Additional Past Surgical History / Comment(s): knee and hip replaced rt Past Anesthesia/Blood Transfusion Reactions: No Reported Reaction Past Psychological History: Anxiety, Depression Smoking Status: Never smoker Past Alcohol Use History: Occasional Past Drug Use History: None Reported - Past Family History Father History Unknown: Yes Mother History Unknown: Yes General Exam Limitations: no limitations General appearance: alert, in no apparent distress Head exam: Present: atraumatic, normocephalic, normal inspection Respiratory exam: Present: normal lung sounds bilaterally. Absent: respiratory distress, wheezes, rales, rhonchi, stridor Cardiovascular Exam: Present: regular rate, normal rhythm, normal heart sounds. Absent: systolic murmur, diastolic murmur, rubs, gallop, clicks Neurological exam: Present: alert, oriented X3, CN II-XII intact Psychiatric exam: Present: normal affect, normal mood Skin exam: Present: warm, dry, intact, normal color. Absent: rash Course Vital Signs 03/23/24 03/23/24 14:04 17:57 Temperature 97.5 F L Pulse Rate 64 64 Respiratory 16 16 Rate Blood Pressure 122/68 129/66 O2 Sat by Pulse 96 98 Oximetry Medical Decision Making - Medical Decision Making This is a 78 year old male who presents to the emergency department for a fall. Was pt. sent in by a medical professional or institution? @ -No Did you speak to anyone other than the patient for history? @ -No Did you review nursing and triage notes? @ -Yes, and I agree, it is accurate with regards to the patient's symptoms. Were old charts reviewed? @ -No Differential Diagnosis? @ -Differential Fall: Vasovagal episode, orthostatic hypotension, syncope, mechanical fall, this is not meant to be an all-inclusive list. EKG interpreted by me (3pts min.)? @ -EKG interpreted by me demonstrating the following: Sinus rhythm. Ventricular rate 63 bpm, SC interval 202 ms, QRS duration 109 ms, QTc 449 ms. X-rays interpreted by me (1pt min.)? @ -X-ray of the lumbar spine and sacrum/coccyx obtained. My interpretation identifies no acute fractures. Chest x-ray obtained, my interpretation identifies no localized consolidations or infiltrates. CT interpreted by me (1pt min.)? @ -Not obtained U/S interpreted by me (1pt. min.)? @ -Not obtained What testing was considered but not performed? (CT, X-rays, U/S, labs)? Why? @ -None What meds were considered but not given? Why? @ -None Did you discuss the management of the patient with other professionals? @ -No Did you reconcile home meds? @ -No Was smoking cessation discussed for >3mins.? @ -No Was critical care preformed (if so, how long)? @ -No Were there social determinants of health that impacted care today? How? (Homelessness, low income, unemployed, alcoholism, drug addiction, transportation, low edu. Level, literacy, decrease access to med. care, shelter, rehab)? @ -No Was there de-escalation of care discussed even if they declined? (Discuss DNR or withdrawal of care, Hospice)? @ -No What co-morbidities impacted this encounter? (DM, HTN, Smoking, COPD, CAD, Cancer, CVA, Hep., AIDS, mental health diagnosis, sleep apnea, morbid obesity)? @ -Parkinson's disease Was patient admitted / discharged? @ -Discharged. Lab work unremarkable. Urinalysis negative for signs of inf ection. X-ray of the lumbar spine and sacrum/coccyx obtained revealing no acute injuries. Chest x-ray demonstrates cardiomegaly and mild pulmonary vascular congestion. BNP negative for signs of CHF. Patient was relatively asymptomatic in the emergency department. Family was concerned about taking him home and having him continue to fall and struggle to walk, which seems to be getting worse with the Parkinson's. Case management spoke with the patient and family, and patient is really eager to go home and does not want to be in the hospital. Patient needs a wheelchair to complete ADLs. They are unable to be done with a walker or cane due to Parkinson's and unstable gait. Patient has a caregiver to propel him at home. Forms and a prescription for a wheelchair were filled out in the emergency department. Case discussed with ED attending, Dr. Gunter. Return precautions reviewed in depth, the patient is instructed to return to the emergency department with any new, worsening, or concerning symptoms. Patient verbalized understanding. Undiagnosed new problem with uncertain prognosis? @ -None Drug Therapy requiring intensive monitoring for toxicity (Heparin, Nitro, Insulin, Cardizem)? @ -None Were any procedures done? @ -None Diagnosis/symptom? @ -Fall Acute, or Chronic, or Acute on Chronic? @ -Acute Uncomplicated (without systemic symptoms) or Complicated (systemic symptoms)? @ -Uncomplicated Side effects of treatment? @ -None Exacerbation, Progression, or Severe Exacerbation] @ -Not applicable Poses a threat to life or bodily function? @ -Not at this time, however recurrent falls can be problematic. - Lab Data Result diagrams: 03/23/24 15:41 03/23/24 15:41 Lab Results 03/23/24 03/23/24 03/23/24 Range/Units 15:41 15:41 15:41 WBC 9.6 (3.8-10.6) k/uL RBC 3.99 L (4.30-5.90) m/uL Hgb 13.0 (13.0-17.5) gm/dL Hct 38.3 L (39.0-53.0) % MCV 95.9 (80.0-100.0) fL MCH 32.5 (25.0-35.0) pg MCHC 33.9 (31.0-37.0) g/dL RDW 13.1 (11.5-15.5) % Plt Count 213 (150-450) k/uL MPV 8.2 Neutrophils % 80 % Lymphocytes % 9 % Monocytes % 8 % Eosinophils % 1 % Basophils % 0 % Neutrophils # 7.7 (1.3-7.7) k/uL Lymphocytes # 0.9 L (1.0-4.8) k/uL Monocytes # 0.8 (0-1.0) k/uL Eosinophils # 0.1 (0-0.7) k/uL Basophils # 0.0 (0-0.2) k/uL Sodium 139 (137-145) mmol/L Potassium 3.9 (3.5-5.1) mmol/L Chloride 104 (98-107) mmol/L Carbon Dioxide 31 H (22-30) mmol/L Anion Gap 4 mmol/L BUN 27 H (9-20) mg/dL Creatinine 0.78 (0.66-1.25) mg/dL Est GFR (CKD-EPI)AfAm >90 (>60 ml/min/1.73 sqM) Est GFR (CKD-EPI)NonAf 86 (>60 ml/min/1.73 sqM) Glucose 105 H (74-99) mg/dL Calcium 9.1 (8.4-10.2) mg/dL Total Bilirubin 0.7 (0.2-1.3) mg/dL AST 27 (17-59) U/L ALT 7 (4-49) U/L Alkaline Phosphatase 58 (38-126) U/L Troponin I (0.000-0.034) ng/mL NT-Pro-B Natriuret Pep pg/mL Total Protein 6.3 (6.3-8.2) g/dL Albumin 3.7 (3.5-5.0) g/dL Urine Color Yellow Urine Appearance Clear (Clear) Urine pH 5.5 (5.0-8.0) Ur Specific [place] 1.022 (1.001-1.035) Urine Protein Negative (Negative) Urine Glucose (UA) Negative (Negative) Urine Ketones Negative (Negative) Urine Blood Negative (Negative) Urine Nitrite Negative (Negative) Urine Bilirubin Negative (Negative) Urine Urobilinogen <2.0 (<2.0) mg/dL Ur Leukocyte Esterase Negative (Negative) 03/23/24 03/23/24 Range/Units 15:41 15:41 WBC (3.8-10.6) k/uL RBC (4.30-5.90) m/uL Hgb (13.0-17.5) gm/dL Hct (39.0-53.0) % MCV (80.0-100.0) fL MCH (25.0-35.0) pg MCHC (31.0-37.0) g/dL RDW (11.5-15.5) % Plt Count (150-450) k/uL MPV Neutrophils % % Lymphocytes % % Monocytes % % Eosinophils % % Basophils % % Neutrophils # (1.3-7.7) k/uL Lymphocytes # (1.0-4.8) k/uL Monocytes # (0-1.0) k/uL Eosinophils # (0-0.7) k/uL Basophils # (0-0.2) k/uL Sodium (137-145) mmol/L Potassium (3.5-5.1) mmol/L Chloride (98-107) mmol/L Carbon Dioxide (22-30) mmol/L Anion Gap mmol/L BUN (9-20) mg/dL Creatinine (0.66-1.25) mg/dL Est GFR (CKD-EPI)AfAm (>60 ml/min/1.73 sqM) Est GFR (CKD-EPI)NonAf (>60 ml/min/1.73 sqM) Glucose (74-99) mg/dL Calcium (8.4-10.2) mg/dL Total Bilirubin (0.2-1.3) mg/dL AST (17-59) U/L ALT (4-49) U/L Alkaline Phosphatase (38-126) U/L Troponin I <0.012 (0.000-0.034) ng/mL NT-Pro-B Natriuret Pep 302 pg/mL Total Protein (6.3-8.2) g/dL Albumin (3.5-5.0) g/dL Urine Color Urine Appearance (Clear) Urine pH (5.0-8.0) Ur Specific [place] (1.001-1.035) Urine Protein (Negative) Urine Glucose (UA) (Negative) Urine Ketones (Negative) Urine Blood (Negative) Urine Nitrite (Negative) Urine Bilirubin (Negative) Urine Urobilinogen (<2.0) mg/dL Ur Leukocyte Esterase (Negative) - Radiology Data Radiology results: report reviewed, image reviewed Disposition Clinical Impression: Fall, Parkinson disease Disposition: HOME SELF-CARE Instructions (If sedation given, give patient instructions): Parkinson Disease (ED), Fall Prevention for Older Adults (ED) Additional Instructions: Return to the emergency department with any new, worsening, or concerning symptoms. Follow up with your primary care provider in 1-2 days. Is patient prescribed a controlled substance at d/c from ED?: No Referrals: [facility] [facility] [NON-STAFF] - As Soon As Possible (Contact regarding senior transportation, ramp build program, meals on wheels, and private duty aid services.) [facility] [NON-STAFF] - As Soon As Possible (Contact regarding wheelchair. Inform them you were working with Deirdre the ER Conference And Event Organiser at [facility] and to contact her if more information needed. ) Olesya Starr MD [Primary Care Provider] - 1-2 days [place] [NON-STAFF] - 1-2 days (Contact regarding ramp build program. ) [facility], [NON-STAFF] - 1-2 days (Contact regarding private duty aid services.) Forms: [facility]
--- NOTE | 2024-03-23 15:50 | XR ---
EXAMINATION TYPE: XR sacrum coccyx DATE OF EXAM: 03/23/2024 3:05 PM CLINICAL INDICATION: Male, 78 years old with history of Fall; [facility] COMPARISON: None TECHNIQUE: XR sacrum coccyx, examined in frontal and lateral projections. FINDINGS: There is no evidence of fracture or dislocation. There is no soft tissue abnormality. No a bnormal calcifications are present. Multilevel degenerative changes of the lower spine. Hip arthropla sty changes right hip. Generation changes spine. IMPRESSION: No acute osseous pathology. [facility], , 03/23/2024 3:48 PM
--- NOTE | 2024-03-23 15:53 | XR ---
EXAMINATION TYPE: XR chest 2V DATE OF EXAM: 03/23/2024 3:05 PM CLINICAL INDICATION: Male, 78 years old with history of Fall COMPARISON: Chest radiographs from06/23/2022 TECHNIQUE: XR chest 2V Frontal view of the chest. FINDINGS: Lungs/Pleura: There is no evidence of pleural effusion, focal consolidation, or pneumothorax. Pulmonary vascularity: Unremarkable. Heart/mediastinum: Cardiomediastinal silhouette is unremarkable. Musculoskeletal: No acute osseous pathology. Other findings: None IMPRESSION: Cardiomegaly and mild pulmonary vascular congestion. Correlate with BNP for congestive heart failure. [facility], , 03/23/2024 3:51 PM
[2024-03-23 16:06] LABS: Appearance,Urine Clear (Clear); Bilirubin,Urine Negative (Negative); Blood,Urine Negative (Negative); Color,Urine Yellow; Glucose,Urine (UA) Negative (Negative); Ketones,Urine Negative (Negative); Leukocyte Esterase,Urine Negative (Negative); Nitrite,Urine Negative (Negative); PH, Urine 5.5 (5.0-8.0); Protein,Urine Negative (Negative); Specific Gravity,Urine 1.022 (1.001-1.035); Urobilinogen,Urine <2.0 mg/dL (<2.0)
[2024-03-23 16:08] LABS: ALT 7 U/L (4-49); AST 27 U/L (17-59); African American GFR (CKD) >90 (>60 ml/min/1.73 sqM); Albumin 3.7 g/dL (3.5-5.0); Alkaline Phosphatase 58 U/L (38-126); Anion Gap 4 mmol/L; Blood Urea Nitrogen 27 mg/dL (9-20); Calcium 9.1 mg/dL (8.4-10.2); Carbon Dioxide 31 mmol/L (22-30); Chloride 104 mmol/L (98-107); Glucose 105 mg/dL (74-99); Non-African American GFR(CKD) 86 (>60 ml/min/1.73 sqM); Potassium 3.9 mmol/L (3.5-5.1); Sodium 139 mmol/L (137-145); Total Bilirubin 0.7 mg/dL (0.2-1.3); Total Protein 6.3 g/dL (6.3-8.2)
[2024-03-23 16:31] LABS: Basophils % (A) 0 %; Eosinophils # (A) 0.1 k/uL (0-0.7); Eosinophils % (A) 1 %; HCT 38.3 % (39.0-53.0); Lymphocytes # (A) 0.9 k/uL (1.0-4.8); Lymphocytes % (A) 9 %; MCH 32.5 pg (25.0-35.0); MCHC 33.9 g/dL (31.0-37.0); MCV 95.9 fL (80.0-100.0); Mean Platelet Volume 8.2; Monocytes # (A) 0.8 k/uL (0-1.0); Monocytes % (A) 8 %; Neutrophils # (A) 7.7 k/uL (1.3-7.7); Neutrophils % (A) 80 %; Platelet Count 213 k/uL (150-450); RBC 3.99 m/uL (4.30-5.90); RDW 13.1 % (11.5-15.5); WBC 9.6 k/uL (3.8-10.6)
[2024-03-23 17:59] VITALS: BP 129/66
== END 2024-03-23 17:59 | disposition home or self-care (01) ==
LOC: EC 13:58
CPT/HCPCS: 36415; 71046; 72100; 72220; 80053; 81003; 83880; 84484; 85025; 93005; 99284